=== PATIENT | male | born 1995 | race Two or more races ===

== ENCOUNTER 2020-06-30 09:52 | Outpatient (REF) | payer OTHER, SELFPAY ==
--- NOTE | 2020-06-30 | MR_ITS ---
MRI OF THE BRAIN WITHOUT IV CONTRAST INDICATION: 2 months of headache and vertigo. COMPARISON: Head CT 01/29/2020. TECHNIQUE: Multiplanar multisequence MR imaging of the brain was obtained without IV contrast. FINDINGS: There is no hydrocephalus, extra-axial surface collection, or herniation. Volume averaging artifact versus a nodule within the left internal auditory canal on image 6 of series 8 that can be further assessed with an IAC protocol MRI in light of the patient's history of vertigo. The major flow voids at the skull base are preserved. There is no acute infarct on diffusion-weighted imaging. There is no intracranial hemorrhage on the gradient recalled echo acquisition. The midline structures are normal. The cerebellar tonsils are normally positioned. The cerebellum and brainstem are normal. The craniocervical junction is normal. Osseous marrow signal intensity is homogenous. The visualized soft tissues are unremarkable. Large retention cysts within the maxillary sinuses bilaterally. MR/MR head/brain wo con IMPRESSION: - Volume averaging artifact versus a nodule within the left internal auditory canal on image 6 of series 8 that can be further assessed with an IAC protocol MRI with and without IV contrast in light of the patient's history of vertigo. - Large retention cysts within the maxillary sinuses bilaterally.
== END 2020-06-30 09:53 | disposition home or self-care (01) ==
LOC: HO.MRI 09:52
PROVIDERS: PCP Internal Medicine; Visit Provider Psychiatry & Neurology Neurology
DX: R42 Dizziness and giddiness (principal); R51.9 Headache, unspecified
CPT/HCPCS: 70551

== ENCOUNTER → 2021-01-17 13:59 | Outpatient (BNVA) | payer OTHER, SELFPAY | PROVIDERS: Visit Provider Internal Medicine Gastroenterology | DX: K21.9 Gastro-esophageal reflux disease without esophagitis (principal) | CPT/HCPCS: 99202 ==

== ENCOUNTER 2021-02-08 13:21 | Outpatient (REF) | payer OTHER, SELFPAY ==
[2021-02-08 14:43] LABS: MANUAL DIFF FLAG NO
[2021-02-08 14:50] LABS: Basophils Percent Auto 0.4 % (0-2); Eosinophils Absolute Auto 0.4 X10*3/uL (0.0-0.4); Eosinophils Percent Auto 5.3 % (0-4); Hematocrit 47.3 % (42-52); Hemoglobin 15.9 g/dl (14.0-18.0); Imm Gran Abs Auto 0.02 X10*3/uL (0.00-0.03); Imm Gran Pct Auto 0.3 % (0.0-0.4); Lymphocytes Absolute Auto 2.4 X10*3/uL (1.2-4.9); Lymphocytes Percent Auto 29.7 % (20-40); Mean Corpuscular HGB Conc 33.6 g/dl (31.0-36.0); Mean Corpuscular Volume 83.3 fL (80-98); Mean Platelet Volume 10.2 fL (9.4-12.4); Monocytes Absolute Auto 0.8 X10*3/uL (0.1-1.2); Neutrophils Absolute Auto 4.4 X10*3/uL (2.0-8.3); Neutrophils Percent Auto 54.3 % (45-73); Platelet Count 238 X10*3/uL (160-400); Red Blood Count 5.68 X10*6/uL (4.60-5.80); Red Cell Distribution Width 12.6 % (11.0-16.0)
[2021-02-08 15:51] LABS: Erythrocyte Sedimentation Rate 2 MM/HR (0-15)
== END 2021-02-08 13:22 | disposition home or self-care (01) ==
LOC: HO.LAB 13:21
PROVIDERS: PCP Internal Medicine; Visit Provider Hospitalist
DX: J45.909 Unspecified asthma, uncomplicated (principal); R91.8 Other nonspecific abnormal finding of lung field; K21.9 Gastro-esophageal reflux disease without esophagitis
CPT/HCPCS: 36415; 85025; 85652; 86003; 99202

== ENCOUNTER 2021-03-01 12:50 | Outpatient (REF) | payer OTHER, SELFPAY ==
--- NOTE | ~2021-03-01 | CT_ITS ---
EXAMINATION: CT CHEST WITHOUT CONTRAST CLINICAL INFORMATION: Pulmonary nodule. COMPARISON: None. TECHNIQUE: Multidetector volumetric CT imaging of the chest was done. Axial MIP volume rendering provided. Sagittal and coronal reformatted images were obtained. This CT examination was performed using dose optimization techniques as appropriate, variously including the following: *Automated exposure control *Adjustment of mA and/or kV according to patient size (this includes techniques or standardized protocols for targeted exams where dose is matched to indication/reason for exam; i.e. extremities or head) *Use of iterative reconstruction technique DLP: 146 mGy-cm. FINDINGS: CODING ANALYST: Unremarkable. LUNGS: The lungs are well expanded and clear acute pneumonic process. There is a 2 mm nodule right upper lobe axial image 83/6, 1 mm nodule right upper lobe axial image 145/6, 2 mm nodule left superior major fissure axial image 151/6, 2 mm nodule along the left major fissure axial image 225/6. There is no acute consolidation, mass or groundglass density. MEDIASTINUM: The thyroid lobes are symmetrical and normal. The central trachea and the bronchi are widely patent. Heart size and the great vessels are normal caliber. There is no pericardial effusion. No abnormal-sized mediastinal or hilar lymph nodes seen. PLEURA: There is no pleural effusion. No pleural mass or thickening. AXILLA: There are small shotty lymph nodes seen in the axilla. The chest wall is unremarkable. UPPER ABDOMEN: Visualized liver, spleen, pancreas and bilateral adrenal glands are unremarkable. OSSEOUS STRUCTURES: No lytic or sclerotic process seen. CT/CT chest wo con IMPRESSION: Scattered bilateral tubular pulmonary nodules noted. No mass or acute consolidation. No abnormal mediastinal, hilar or axillary lymphadenopathy.
== END 2021-03-01 12:51 | disposition home or self-care (01) ==
LOC: HO.CT 12:50
PROVIDERS: Visit Provider Hospitalist
DX: R91.8 Other nonspecific abnormal finding of lung field (principal)
CPT/HCPCS: 71250

== ENCOUNTER 2022-01-03 10:32 | Outpatient (REF) | payer OTHER, SELFPAY ==
[2022-01-03 12:10] LABS: COVID-19 Test Positive (Negative)
== END 2022-01-03 10:33 | disposition home or self-care (01) ==
LOC: HO.LAB 10:32
PROVIDERS: Visit Provider Internal Medicine
DX: Z20.822 Contact with and (suspected) exposure to COVID-19 (principal)
CPT/HCPCS: 87635; C9803

== ENCOUNTER 2022-01-04 11:14 | Emergency (ER) | payer OTHER, SELFPAY ==
--- NOTE | 2022-01-04 12:19 | PC.NURSE ---
PT HERE FOR COVID RESULTS FROM YESTERDAY. 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
== END 2022-01-04 12:58 | disposition left against medical advice (07) ==
PROVIDERS: Emergency Provider Emergency Medicine; PCP Internal Medicine
DX: J02.9 Acute pharyngitis, unspecified (principal); R51.9 Headache, unspecified; R11.0 Nausea

== ENCOUNTER 2022-01-04 14:02 | Emergency (ER) | payer OTHER, SELFPAY ==
--- NOTE | ~2022-01-04 | XR_ITS ---
EXAMINATION: XR CHEST CLINICAL INFORMATION: Chest pain COMPARISON: Previous chest x-ray August [address] February 2021 TECHNIQUE: Frontal view of the chest was obtained. FINDINGS: No significant abnormality is noted involving the heart, lungs, mediastinum, bony thorax or soft tissues. XR/XR chest 1V IMPRESSION: Unremarkable examination.
--- NOTE | 2022-01-04 14:13 | ECG_ITS ---
Test Reason : cp Blood Pressure : / mmHG Vent. Rate : 114 BPM Atrial Rate : 114 BPM P-R Int : 114 ms QRS Dur : 076 ms QT Int : 288 ms P-R-T Axes : 066 049 035 degrees QTc Int : 396 ms Sinus tachycardia Otherwise normal ECG When compared with ECG of 19-MAR-2020 04:24, No significant change was found Referred By: Britt Montoya Electronically Signed By:HITESH LEE MD
[2022-01-04 14:33] VITALS: BP 146/71; PULSE 102; RESP 20; TEMP 37.2; O2SAT 96; BMI 22.8
[2022-01-04 14:38] LABS: MANUAL DIFF FLAG NO
[2022-01-04 14:40] LABS: Basophils Percent Auto 0.2 % (0-2); Eosinophils Absolute Auto 0.2 X10*3/uL (0.0-0.4); Eosinophils Percent Auto 2.4 % (0-4); Hematocrit 43.8 % (42.0-52.0); Hemoglobin 14.9 g/dl (14.0-18.0); Imm Gran Abs Auto 0.03 X10*3/uL (0.00-0.03); Imm Gran Pct Auto 0.3 % (0.0-0.4); Lymphocytes Absolute Auto 0.3 X10*3/uL (1.2-4.9); Lymphocytes Percent Auto 3.2 % (20-40); Mean Corpuscular Hemoglobin 28.2 pg (27.0-33.0); Mean Platelet Volume 9.9 fL (9.4-12.4); Monocytes Absolute Auto 1.1 X10*3/uL (0.1-1.2); Monocytes Percent Auto 11.5 % (2-11); Neutrophils Absolute Auto 7.6 x10*3/uL (2.0-8.3); Neutrophils Percent Auto 82.4 % (45-73); Platelet Count 201 X10*3/uL (160-400); Red Blood Count 5.28 X10*6/uL (4.60-5.80); White Blood Count 9.2 X10*3/uL (4.8-10.8)
[2022-01-04 15:02] LABS: Alanine Aminotransferase 27 U/L (0-40); Albumin Level 4.5 g/dL (3.5-5.0); Alkaline Phosphatase 55 U/L (39-117); Anion Gap 12 (12-20); Aspartate Amino Transferase 19 U/L (5-37); Bilirubin Direct 0.2 mg/dL (0.0-0.5); Bilirubin Total 0.5 mg/dL (0.0-1.0); Blood Urea Nitrogen 9 mg/dL (9-16); Calcium 9.1 mg/dL (8.4-10.2); Carbon Dioxide 25 mmol/L (22-29); Chloride 106 mmol/L (96-108); Creatinine Clr Calc Pharmacy 96.2; Estimated Glomerular Filt Rate > 60; Glucose Random 113 mg/dL (60-115); Lipase 32 U/L (8-78); Potassium 4.2 mmol/L (3.3-5.1); Sodium 139 mmol/L (135-145); Total Protein 7.2 g/dL (6.5-8.0)
[2022-01-04 15:06] LABS: Troponin-I High Sensitivity < 3.5 ng/L (<3.5-35.0)
[2022-01-04 16:24] VITALS: BP 123/75; PULSE 102; RESP 20; TEMP 36.7; O2SAT 100
--- NOTE | 2022-01-04 16:37 | ED_ITS ---
HPI - General Adult General Chief complaint: General Medical Stated complaint: chest pain Time Seen by Provider: 01/04/22 14:12 Source: patient Mode of arrival: ambulatory Limitations: no limitations History of Present Illness HPI narrative: 26-year-old male with history of asthma, gastric reflux presents with subjective fevers, body aches and cough for 2 days. Patient checked into the emergency room yesterday and had a COVID screen was positive. He left before being seen. He returns today for some increased cough and shortness of breath. Patient also reports chest discomfort with breathing and coughing. No leg swelling or leg pain. Patient is unvaccinated for COVID Related Data Home Medications Medication Instructions Recorded Confirmed albuterol sulfate mg inhalation Q4H PRN 01/17/21 albuterol sulfate 90 mcg/actuation 2 puff inhalation QID PRN wheezing 01/17/21 aerosol inhaler fluticasone propionate 50 0 mcg intranasal 01/17/21 mcg/actuation nasal spray,suspension loratadine 10 mg tablet 10 mg PO DAILY 01/17/21 lorazepam 0.5 mg tablet 0.5 mg PO DAILY 01/17/21 nystatin 100,000 unit/mL oral 1 ml PO QID 01/17/21 suspension sucralfate 1 gram tablet 1 g PO TID 01/17/21 sumatriptan succinate 100 mg tablet 100 mg PO migraine 01/17/21 Previous Rx's Medication Instructions Recorded pantoprazole 40 mg tablet,delayed 40 mg PO DAILY #30 tabs 01/17/21 release albuterol sulfate 90 mcg/actuation 2 inh inhalation Q4H PRN shortness 01/04/22 breath activated powder inhaler of breath or wheezing #1 ea benzonatate 200 mg capsule 200 mg PO TID PRN cough #20 caps 01/04/22 prednisone 20 mg tablet 40 mg PO DAILY #10 tabs 01/04/22 Allergies Allergy/AdvReac Type Severity Reaction Status Date / Time cephalexin [CEPHALEXIN] Allergy Severe ANGIOEDEMA Unverified 02/08/21 13:44 penicillin G Allergy Severe unknown Verified 02/08/21 13:44 Penicillins [PENICILLINS] Allergy Severe ANGIOEDEMA Unverified 02/08/21 13:44 Iodinated Contrast Media Allergy Mild unknown Verified 02/08/21 13:44 Review of Systems Review of Systems: Yes all other systems are reviewed and are negative Constitutional: Constitutional: Reports no additional constitutional complaints, Reports body ache(s), Denies chills, Reports fever(s), Denies headache(s) and Denies weakness Eyes: Eyes: Reports no additional eye complaints and Denies change in vision ENT: Reports system reviewed and no additional complaints, except as docume nted, Denies dizziness, Denies headache(s), Denies nasal congestion, Denies nasal discharge and Denies neck pain Cardiovascular: Cardiovascular: Reports no additional cardiovascular complaints, Reports chest pain, Denies leg edema and Reports dyspnea Respiratory: Respiratory: Reports no additional respiratory complaints, Reports cough and Reports dyspnea Gastrointestinal: Gastrointestinal: Reports no additional gastrointestinal complaints, Denies abdominal pain, Denies diarrhea, Denies nausea and Denies vomiting Genitourinary: Genitourinary: Denies urinary incontinence Musculoskeletal: Musculoskeletal: Reports no additional musculoskeletal complaints, Denies back pain, Denies arthralgias, Denies joint swelling, Denies neck pain, Denies numbness and Denies tingling Integumentary/Breasts: Skin/Breast: Reports system reviewed and no additional complaints, except as docu and Denies rash Neurologic: Reports system reviewed and no additional complaints, except as documented, Denies dizziness, Denies headache(s), Denies numbness, Denies tingling and Denies weakness [facility] Past Medical History Attestation statement: The following information was validated with the patient. Source: old records reviewed and nursing notes reviewed Medical History Asthma Pulmonary nodules Social History Social History Patient Tobacco Use Status: Never used Tobacco Advance Directives: No Advance Directives Information Provided: No Physical Exam ED Vital Signs: Vital Signs - 24 hr 01/04/22 14:33 01/04/22 16:24 Temperature 98.9 F 98.1 F Pulse Rate 102 H 102 H Respiratory Rate 20 20 Blood Pressure 146/71 H 123/75 Pulse Oximetry 96 100 Oxygen Delivery Method Room Air Room Air BMI result Body Mass Index 22.8 Const General: cooperative, healthy appearing, comfortable and no acute distress Orientation/consciousness: patient oriented x3 Limitations: no limitations HENMT Head: Yes normal to inspection Ears: hearing grossly normal bilaterally and TM's normal bilaterally Throat: Yes posterior oropharynx normal, Yes tonsils normal and Yes uvula midline Eyes General: appearance normal, both eyes and all related structures Pupils: Equal, round and reactive pupils present Neck Neck: Yes normal visual inspection, Yes full ROM, Yes no lymphadenopathy and Yes no meningeal signs Chest Chest palpation & inspection: normal inspection of the chest Resp Effort & Inspection: normal respiratory effort Auscultation: clear to auscultation bilaterally Cardio Rate: regular rate Rhythm: regular rhythm Peripheral pulses: Peripheral pulses 2+ throughout GI Inspection: Yes normal to inspection Palpation (GI): Soft to palpation and nontender General: Yes no CVA tenderness Back/Spine/Pelvis Back: no CVA tenderness Thoracic/Lumbar Spine: thoracic and lumbar spine normal to inspection Skin General skin exam: no rashes or lesions noted Neuro General: patient oriented x3, moves all extremities and no meningeal signs Cranial nerves: Yes Equal, round and reactive pupils present Extrem General: Yes normal to inspection, Yes no pedal edema and Yes no calf tenderness Course Course Course Narrative: Labs are all negative. EKG shows no acute findings with the exception of some mild tachycardia. This resolved with rest. Chest x-ray is negative for infection. Likely chest wall strain secondary to coughing from COVID-19 infection. Patient will be discharged home with cough suppressant, prednisone course and to continue his albuterol MDI. Reviewed worrisome signs and symptoms when to return to the emergency department. Comfortable discharge home. Medical Decision Making MDM Narrative Medical decision making narrative: 26-year-old male who is known COVID positive presents with cough, shortness of breath, chest discomfort with coughing. No leg swelling leg pain. He has had tactile temps. On arrival patient is alert and oriented. His lungs are clear. He is mildly tachycardic. No hypoxia or tachypnea. Clinical findings concerning for DVT. He does report chest dis comfort which is worsened with deep breathing and coughing. Patient had labs, EKG and chest x-ray ordered from triage. Consider pneumonia, PE, chest wall strain Medical Records Medical records reviewed: Yes I reviewed the patient's medical records. Lab Data Lab results reviewed: Yes I reviewed the patient's lab results. Result diagrams: 01/04/22 14:33 01/04/22 14:33 Labs: Lab Results 01/04/22 01/04/22 01/04/22 Range/Units 14:33 14:33 14:33 WBC 9.2 (4.8-10.8) X10*3/uL RBC 5.28 (4.60-5.80) X10*6/uL Hgb 14.9 (14.0-18.0) g/dl Hct 43.8 (42.0-52.0) % MCV 83.0 (80.0-98.0) fL MCH 28.2 (27.0-33.0) pg MCHC 34.0 (31.0-36.0) g/dl RDW 13.0 (11.0-16.0) % Plt Count 201 (160-400) X10*3/uL MPV 9.9 (9.4-12.4) fL Immature Gran % (Auto) 0.3 (0.0-0.4) % Neut % (Auto) 82.4 H (45-73) % Lymph % (Auto) 3.2 L (20-40) % Weston % (Auto) 11.5 H (2-11) % Eos % (Auto) 2.4 (0-4) % Baso % (Auto) 0.2 (0-2) % Lymph # (Auto) 0.3 L (1.2-4.9) X10*3/uL Weston # (Auto) 1.1 (0.1-1.2) X10*3/uL Eos # (Auto) 0.2 (0.0-0.4) X10*3/uL Baso # (Auto) 0.0 (0.0-0.2) X10*3/uL Abs Immat Gran (auto) 0.03 (0.00-0.03) X10*3/uL Absolute Neuts (auto) 7.6 (2.0-8.3) x10*3/uL Absolute Nucleated RBC 0.000 (0.0-0.012) X10*3/uL Nucleated RBC % (auto) 0.0 (0.0-0.2) /100WBC PT (10.0-13.1) SEC INR (0.9-1.1) D-Dimer High Sensitivty NG/ML Sodium 139 (135-145) mmol/L Potassium 4.2 (3.3-5.1) mmol/L Chloride 106 (96-108) mmol/L Carbon Dioxide 25 (22-29) mmol/L Anion Gap 12 (12-20) BUN 9 (9-16) mg/dL Creatinine 1.05 (0.5-1.4) mg/dL Estim Creat Clear Calc 96.2 Estimated GFR > 60 Random Glucose 113 (60-115) mg/dL Calcium 9.1 (8.4-10.2) mg/dL Total Bilirubin 0.5 (0.0-1.0) mg/dL Direct Bilirubin 0.2 (0.0-0.5) mg/dL AST 19 (5-37) U/L ALT 27 (0-40) U/L Alkaline Phosphatase 55 (39-117) U/L Troponin I High Sens < 3.5 (<3.5-35.0) ng/L Total Protein 7.2 (6.5-8.0) g/dL Albumin 4.5 (3.5-5.0) g/dL Lipase 32 (8-78) U/L 01/04/22 Range/Units 16:38 WBC (4.8-10.8) X10*3/uL RBC (4.60-5.80) X10*6/uL Hgb (14.0-18.0) g/dl Hct (42.0-52.0) % MCV (80.0-98.0) fL MCH (27.0-33.0) pg MCHC (31.0-36.0) g/dl RDW (11.0-16.0) % Plt Count (160-400) X10*3/uL MPV (9.4-12.4) fL Immature Gran % (Auto) (0.0-0.4) % Neut % (Auto) (45-73) % Lymph % (Auto) (20-40) % Weston % (Auto) (2-11) % Eos % (Auto) (0-4) % Baso % (Auto) (0-2) % Lymph # (Auto) (1.2-4.9) X10*3/uL Weston # (Auto) (0.1-1.2) X10*3/uL Eos # (Auto) (0.0-0.4) X10*3/uL Baso # (Auto) (0.0-0.2) X10*3/uL Abs Immat Gran (auto) (0.00-0.03) X10*3/uL Absolute Neuts (auto) (2.0-8.3) x10*3/uL Absolute Nucleated RBC (0.0-0.012) X10*3/uL Nucleated RBC % (auto) (0.0-0.2) /100WBC PT 11.5 (10.0-13.1) SEC INR 1.0 (0.9-1.1) D-Dimer High Sensitivty 172 NG/ML Sodium (135-145) mmol/L Potassium (3.3-5.1) mmol/L Chloride (96-108) mmol/L Carbon Dioxide (22-29) mmol/L Anion Gap (12-20) BUN (9-16) mg/dL Creatinine (0.5-1.4) mg/dL Estim Creat Clear Calc Estimated GFR Random Glucose (60-115) mg/dL Calcium (8.4-10.2) mg/dL Total Bilirubin (0.0-1.0) mg/dL Direct Bilirubin (0.0-0.5) mg/dL AST (5-37) U/L ALT (0-40) U/L Alkaline Phosphatase (39-117) U/L Troponin I High Sens (<3.5-35.0) ng/L Total Protein (6.5-8.0) g/dL Albumin (3.5-5.0) g/dL Lipase (8-78) U/L Imaging Data Chest x-ray: Attestation: I personally reviewed and interpreted this imaging study as follows: Radiologist's impression: [address] [address] XRay Report Signed Patient: Fam Goldberg MR#: [id number] : 1995 Acct:[id number] Age/Sex: 26 / M ADM Date: 01/04/22 Loc: .ED Attending Dr: Ordering Physician: Britt Montoya MD Date of Service: 01/04/22 Procedure(s): XR chest 1V Accession Number(s): [id number] cc: Britt Montoya MD~ EXAMINATION: XR CHEST CLINICAL INFORMATION: Chest pain COMPARISON: Previous chest x-ray August [address] February 2021 TECHNIQUE: Frontal view of the chest was obtained. FINDINGS: No significant abnormality is noted involving the heart, lungs, mediastinum, bony thorax or soft tissues. XR/XR chest 1V IMPRESSION: Unremarkable examination. ? ECG Data Attestation: I personally reviewed and interpreted this ECG as follows: Interpretation: Sinus tachycardia with a rate of 114, normal NE, normal QRS, normal QT Discharge Plan Discharge Clinical Impression: COVID, Strain of chest wall Patient Disposition: Home, Self-Care Instructions: Chest Wall Pain (ED), COVID-19 (Coronavirus Disease 2019) (ED) Additional Instructions: Labs, EKG, CXR are all re-assurring. Continue 5 day quarentine Prescriptions: New albuterol sulfate 90 mcg/actuation aerosol powdr breath activated 2 inh inhalation Q4H PRN (Reason: shortness of breath or wheezing) Qty: 1 0RF benzonatate 200 mg capsule 200 mg PO TID PRN (Reason: cough) Qty: 20 0RF prednisone 20 mg tablet 40 mg PO DAILY Qty: 10 0RF No Action sucralfate 1 gram tablet 1 g PO TID albuterol sulfate 90 mcg/actuation HFA aerosol inhaler 2 puff inhalation QID PRN (Reason: wheezing) albuterol sulfate 2.5 mg /3 mL (0.083 %) solution for nebulization inhalation Q4H PRN loratadine 10 mg tablet 10 mg PO DAILY fluticasone propionate 50 mcg/actuation spray,suspension 0 mcg intranasal lorazepam 0.5 mg tablet 0.5 mg PO DAILY sumatriptan succinate 100 mg tablet 100 mg PO nystatin 100,000 unit/mL suspension 1 ml PO QID pantoprazole 40 mg tablet,delayed release (DR/EC) 40 mg PO DAILY Qty: 30 3RF Referrals: Lucien Rai III, MD [Primary Care Provider] - 1 week Stand Alone Forms: Work/School Release Interventions: ED Discharge Assessment Last Done: 01/04/22 17:34 Discharge Date/Time: 01/04/22 17:35 Print Language: Armenian
[2022-01-04 16:51] LABS: Prothrombin Time 11.5 SEC (10.0-13.1)
[2022-01-04 16:52] LABS: D Dimer High Sensitivity 172 NG/ML
== END 2022-01-04 17:35 | disposition home or self-care (01) ==
PROVIDERS: Nurse Practitioner Family; Emergency Provider Emergency Medicine; PCP Internal Medicine
DX: U07.1 COVID-19 (principal); S29.011A Strain of muscle and tendon of front wall of thorax, initial encounter; X50.9XXA Other and unspecified overexertion or strenuous movements or postures, initial encounter; Y93.89 Activity, other specified; Y92.039 Unspecified place in apartment as the place of occurrence of the external cause; Y99.9 Unspecified external cause status
CPT/HCPCS: 36415; 71045; 80048; 80076; 83690; 84484; 85025; 85379; 85610; 93005; 99283; 99284

== ENCOUNTER 2022-01-05 09:02 | Emergency (ER) | payer OTHER, SELFPAY ==
[2022-01-05 09:07] VITALS: BP 120/81; PULSE 98; PULSE 99; RESP 18; TEMP 36.7; O2SAT 100; BMI 22.6
--- NOTE | 2022-01-05 09:32 | ECG_ITS ---
Test Reason : cp/sob Blood Pressure : / mmHG Vent. Rate : 100 BPM Atrial Rate : 100 BPM P-R Int : 120 ms QRS Dur : 076 ms QT Int : 312 ms P-R-T Axes : 068 048 048 degrees QTc Int : 402 ms Normal sinus rhythm Normal ECG When compared with ECG of 04-JAN-2022 14:17, No significant change was found Referred By: Betsy Patino Electronically Signed By:HITESH LEE MD
--- NOTE | 2022-01-05 09:33 | ED_ITS ---
HPI - General Adult General Chief complaint: General Medical Stated complaint: +COVID, FEELS HR CHANGING PER EMS Time Seen by Provider: 01/05/22 09:09 Source: patient and EMS Mode of arrival: EMS History of Present Illness HPI narrative: 26-year-old male with a past medical history of asthma, GERD, COVID-19 positive on 01/03/2022 presenting to the ED complaining of fever, dry cough, chest discomfort, mild SOB, and feeling like his heart is racing since yesterday. Patient admits he was seen and treated in the ED yesterday for similar symptoms, reports today feels like heart rate fluctuation is worse, otherwise symptoms consistent/unchanged. Admits taking 2 Tylenol this morning, and staying hydrated. Denies chills, abdominal pain, nausea/vomiting, recent travel, history of blood clots, pedal edema, calf pain, cigarette smoking. Onset (ago): day(s) Related Data Home Medications Medication Instructions Recorded Confirmed albuterol sulfate mg inhalation Q4H PRN 01/17/21 albuterol sulfate 90 mcg/actuation 2 puff inhalation QID PRN wheezing 01/17/21 aerosol inhaler fluticasone propionate 50 0 mcg intranasal 01/17/21 mcg/actuation nasal spray,suspension loratadine 10 mg tablet 10 mg PO DAILY 01/17/21 lorazepam 0.5 mg tablet 0.5 mg PO DAILY 01/17/21 nystatin 100,000 unit/mL oral 1 ml PO QID 01/17/21 suspension sucralfate 1 gram tablet 1 g PO TID 01/17/21 sumatriptan succinate 100 mg tablet 100 mg PO migraine 01/17/21 Previous Rx's Medication Instructions Recorded pantoprazole 40 mg tablet,delayed 40 mg PO DAILY #30 tabs 01/17/21 release albuterol sulfate 90 mcg/actuation 2 inh inhalation Q4H PRN shortness 01/04/22 breath activated powder inhaler of breath or wheezing #1 ea benzonatate 200 mg capsule 200 mg PO TID PRN cough #20 caps 01/04/22 prednisone 20 mg tablet 40 mg PO DAILY #10 tabs 01/04/22 Allergies Allergy/AdvReac Type Severity Reaction Status Date / Time cephalexin [CEPHALEXIN] Allergy Severe ANGIOEDEMA Verified 01/05/22 09:12 penicillin G Allergy Severe unknown Verified 01/05/22 09:12 Penicillins [PENICILLINS] Allergy Severe ANGIOEDEMA Verified 01/05/22 09:12 Iodinated Contrast Media Allergy Mild unknown Verified 01/05/22 09:12 Review of Systems Review of Systems: Constitutional: + Fever, No Chills, + Fatigue, No Malaise ENT/Mouth: No Ear Pain, No Nasal Congestion, No Sinus Pain, No Hoarseness, No sore throat, No Rhinorrhea, No Swallowing Difficulty Eyes: No Eye Pain, No Swelling, No Redness, No Vision Changes Cardiovascular: + Chest discomfort when coughing, + SOB, No Dyspnea on Exertion, No Orthopnea, No Edema, + Palpitations Respiratory: + Cough, No Sputum, No Wheezing, No Dyspnea Gastrointestinal: No Nausea, No Vomiting, No Diarrhea, No Constipation, No Abdominal pain, No Hematochezia, No Melena Genitourinary: No Dysuria, No Urinary Frequency, No Hematuria Musculoskeletal: No joint pain, No Myalgias, No Joint Swelling Skin: No Skin Lesions, No rash Neuro: No Weakness, No Dizziness, + Headache Yes all other systems are reviewed and are negative [facility] Past Medical History Attestation statement: The following information was validated with the patient. Medical History Asthma Pulmonary nodules Social History Social History Patient Tobacco Use Status: Never used Tobacco Advance Directives: No Advance Directives Information Provided: No Physical Exam ED Vital Signs: Vital Signs - 24 hr 01/05/22 09:07 01/05/22 11:04 Temperature 98.0 F 99.4 F Pulse Rate 98 100 Respiratory Rate 18 18 Blood Pressure 120/81 131/68 Pulse Oximetry 100 100 Oxygen Delivery Method Room Air Room Air BMI result Body Mass Index 22.6 Const General: cooperative, healthy appearing, no acute distress, alert, awake and anxious Orientation/consciousness: patient oriented x3 Limitations: no limitations HENMT Head: Yes normal to inspection and Yes atraumatic Ears: hearing grossly normal bilaterally General nose exam: Normal external nose present Face and sinus: Yes normal facial exam Mouth: Normal oral and palatal mucosa present Throat: Yes posterior oropharynx normal, Yes tonsils normal and Yes uvula midline Eyes General: appearance normal, both eyes and all related structures EOM: EOMs intact bilaterally Neck Neck: Yes normal visual inspection and Yes no meningeal signs Resp Effort & Inspection: normal respiratory effort and no respiratory distress Auscultation: clear to auscultation bilaterally, no crackles, no rales, no rhonchi and no wheezes Cardio Rate: regular rate Heart sounds: S1 normal heart sound present and S2 normal heart sound present GI Inspection: Yes normal to inspection Palpation (GI): Soft to palpation, nontender and no guarding Skin Rashes: no rashes Wounds: no wounds Neuro General: patient oriented x3, tone normal and no meningeal signs Gait exam (Neuro): Normal gait present Extrem General: Yes normal to inspection, Yes no pedal edema and Yes no calf tenderness Course Course Course Narrative: Patient with low-grade temp 99.4 degrees heart rate of 100 suspected from fever. Still low suspicion for PE/DVT >1132--patient tolerating p.o. resting in the emergency department, heart rate 96. 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 Patient verbalized understanding and feel safe for discharge home at this time Medical Decision Making MDM Narrative Medical decision making narrative: 26-year-old male with a past medical history of asthma, GERD, COVID-19 positive on 01/03/2022 presenting to the ED complaining of fever, dry cough, chest discomfort, mild SOB, and feeling like his heart is racing since yesterday. On exam vital signs stable, mildly tachycardic at 98, appears anxious, lungs CTA, no pedal edema/calf tenderness. Reviewed patient's labs from yesterday which were unremarkable including negative troponin and D-dimer. CXR are negative. Patient is prescribed Ativan at home, suspect symptoms are related to anxiety. Low suspicion for PE or DVT with negative D-dimer yesterday. Unlikely pneumonia. Suspect symptoms related to COVID-19 Plan: EKG, Ativan, Motrin, reassess Medical Records Medical records reviewed: Yes I reviewed the patient's medical records. Lab Data Lab results reviewed: Yes I reviewed the patient's lab results. Discharge Plan Discharge Clinical Impression: COVID-19 Patient Disposition: Home, Self-Care Prescriptions: No Action albuterol sulfate 90 mcg/actuation aerosol powdr breath activated 2 inh inhalation Q4H PRN (Reason: shortness of breath or wheezing) Qty: 1 0RF benzonatate 200 mg capsule 200 mg PO TID PRN (Reason: cough) Qty: 20 0RF prednisone 20 mg tablet 40 mg PO DAILY Qty: 10 0RF sucralfate 1 gram tablet 1 g PO TID albuterol sulfate 90 mcg/actuation HFA aerosol inhaler 2 puff inhalation QID PRN (Reason: wheezing) albuterol sulfate 2.5 mg /3 mL (0.083 %) solution for nebulization inhalation Q4H PRN loratadine 10 mg tablet 10 mg PO DAILY fluticasone propionate 50 mcg/actuation spray,suspension 0 mcg intranasal lorazepam 0.5 mg tablet 0.5 mg PO DAILY sumatriptan succinate 100 mg tablet 100 mg PO nystatin 100,000 unit/mL suspension 1 ml PO QID pantoprazole 40 mg tablet,delayed release (DR/EC) 40 mg PO DAILY Qty: 30 3RF
[2022-01-05] MEDS: LORazepam 0.5 MG TABLET PO (10:02)
[2022-01-05] MEDS: Ibuprofen 400 MG TABLET PO (10:02)
[2022-01-05 11:04] VITALS: BP 131/68; PULSE 100; RESP 18; TEMP 37.4; O2SAT 100
[2022-01-05] MEDS: Acetaminophen 325 MG TABLET 650 MG PO (11:30)
[2022-01-05 11:31] VITALS: PULSE 96; RESP 18; O2SAT 98
== END 2022-01-05 11:47 | disposition home or self-care (01) ==
PROVIDERS: Emergency Provider Emergency Medicine; PCP Internal Medicine
DX: U07.1 COVID-19 (principal); R07.89 Other chest pain; R06.02 Shortness of breath; Z79.899 Other long term (current) drug therapy
CPT/HCPCS: 93005; 99283; 99284

== ENCOUNTER 2022-09-29 06:37 | Emergency (ER) | payer OTHER, SELFPAY ==
[2022-09-29 06:42] VITALS: BP 114/69; BP 130/78; PULSE 96; PULSE 97; RESP 16; TEMP 37.1; O2SAT 98; O2SAT 99; BMI 25.0
--- NOTE | 2022-09-29 07:09 | ED_ITS ---
HPI - General Adult General Chief complaint: General Medical Stated complaint: Anxiety Attack Time Seen by Provider: 09/29/22 07:06 Source: patient Mode of arrival: ambulatory Limitations: no limitations History of Present Illness HPI narrative: Patient does have a history of anxiety/panic attack taking care of his dad who has Alzheimer's disease with his sister was feeling very anxious after taking care of him took Ativan 1 mg prior to arrival feeling much better now also complaining of low back pain which is going on for a while no direct trauma or injury patient denies any depression or suicidal ideation Related Data Home Medications Medication Instructions Recorded Confirmed albuterol sulfate 2.5 mg/3 mL mg inhalation Q4H PRN 01/17/21 (0.083 %) solution for nebulization albuterol sulfate 90 mcg/actuation 2 puff inhalation QID PRN wheezing 01/17/21 aerosol inhaler fluticasone propionate 50 0 mcg intranasal 01/17/21 mcg/actuation nasal spray,suspension loratadine 10 mg tablet 10 mg PO DAILY 01/17/21 lorazepam 0.5 mg tablet 0.5 mg PO DAILY 01/17/21 nystatin 100,000 unit/mL oral 1 ml PO QID 01/17/21 suspension sucralfate 1 gram tablet 1 g PO TID 01/17/21 sumatriptan succinate 100 mg tablet 100 mg PO migraine 01/17/21 Previous Rx's Medication Instructions Recorded pantoprazole 40 mg tablet,delayed 40 mg PO DAILY #30 tabs 01/17/21 release albuterol sulfate 90 mcg/actuation 2 inh inhalation Q4H PRN shortness 01/04/22 breath activated powder inhaler of breath or wheezing #1 ea benzonatate 200 mg capsule 200 mg PO TID PRN cough #20 caps 01/04/22 prednisone 20 mg tablet 40 mg PO DAILY #10 tabs 01/04/22 cyclobenzaprine 10 mg tablet 10 mg PO Q8H #20 tabs 09/29/22 ibuprofen 600 mg tablet 600 mg PO Q6H PRN fever or pain 09/29/22 #30 tabs lorazepam 1 mg tablet (Ativan) 1 mg PO BEDTIME PRN anxiety #20 09/29/22 tabs Allergies Allergy/AdvReac Type Severity Reaction Status Date / Time cephalexin [CEPHALEXIN] Allergy Severe ANGIOEDEMA Verified 01/05/22 09:12 penicillin G Allergy Severe unknown Verified 01/05/22 09:12 Penicillins [PENICILLINS] Allergy Severe ANGIOEDEMA Verified 01/05/22 09:12 Iodinated Contrast Media Allergy Mild unknown Verified 01/05/22 09:12 Review of Systems Review of Systems: Yes all other systems are reviewed and are negative [facility] Past Medical History Medical History Asthma Pulmonary nodules Social History Social History Patient Tobacco Use Status: Never used Tobacco Advance Directives: No Advance Directives Information Provided: Yes Physical Exam ED Vital Signs: Vital Signs - 24 hr 09/29/22 06:42 Temperature 98.7 F Pulse Rate 96 Respiratory Rate 16 Blood Pressure 114/69 Pulse Oximetry 98 Oxygen Delivery Method Room Air BMI result Body Mass Index 25.0 Appearance: Alert. Oriented X3. No acute distress. Mood stable ENT: Pharynx normal. Oral Mucosa moist Neck: Normal inspection. Neck supple. CVS: Normal heart rate and rhythm. Pulses normal. Respiratory: No respiratory distress. Equal air entry bilateral, Abdomen: Soft and nontender. Bowel sounds are present, no mass palpable, no CVA tenderness Skin: Skin warm and dry. Normal skin color. Normal skin turgor. Extremities: No lower extremity edema. No calf tenderness back: Diffuse paraspinal lumbar spine tenderness no deformity SLR negative bila teral Neuro: Oriented X 3. No motor deficit. No sensory deficit.No cerebellar signs , cranial nerves II-XII intact Medical Decision Making Medical Decision Making MDM Narrative: Patient with anxiety discharge patient home on Ativan for low back pain will give him Motrin and Flexeril Discharge Plan Discharge Clinical Impression: Anxiety, Low back pain Patient Disposition: Home, Self-Care Instructions: Back Pain (ED), Anxiety (ED) Additional Instructions: Medication for anxiety as needed Pain medication and muscle relaxer for low back pain Ice pack Follow with PCP Prescriptions: New lorazepam [Ativan] 1 mg tablet 1 mg PO BEDTIME PRN (Reason: anxiety) Qty: 20 0RF cyclobenzaprine 10 mg tablet 10 mg PO Q8H Qty: 20 0RF ibuprofen 600 mg tablet 600 mg PO Q6H PRN (Reason: fever or pain) Qty: 30 0RF No Action albuterol sulfate 90 mcg/actuation aerosol powdr breath activated 2 inh inhalation Q4H PRN (Reason: shortness of breath or wheezing) Qty: 1 0RF benzonatate 200 mg capsule 200 mg PO TID PRN (Reason: cough) Qty: 20 0RF prednisone 20 mg tablet 40 mg PO DAILY Qty: 10 0RF sucralfate 1 gram tablet 1 g PO TID albuterol sulfate 90 mcg/actuation HFA aerosol inhaler 2 puff inhalation QID PRN (Reason: wheezing) albuterol sulfate 2.5 mg /3 mL (0.083 %) solution for nebulization inhalation Q4H PRN loratadine 10 mg tablet 10 mg PO DAILY fluticasone propionate 50 mcg/actuation spray,suspension 0 mcg intranasal lorazepam 0.5 mg tablet 0.5 mg PO DAILY sumatriptan succinate 100 mg tablet 100 mg PO nystatin 100,000 unit/mL suspension 1 ml PO QID pantoprazole 40 mg tablet,delayed release (DR/EC) 40 mg PO DAILY Qty: 30 3RF Stand Alone Forms: Work/School Release Interventions: ED Discharge Assessment Last Done: 09/29/22 07:37 Discharge Date/Time: 09/29/22 07:37
== END 2022-09-29 07:37 | disposition home or self-care (01) ==
PROVIDERS: Emergency Provider Internal Medicine; PCP Internal Medicine
DX: F41.1 Generalized anxiety disorder (principal); F43.0 Acute stress reaction; M54.50 Low back pain, unspecified; Z79.899 Other long term (current) drug therapy
CPT/HCPCS: 99282; 99283

== ENCOUNTER 2022-11-16 12:17 | Day surgery (SDC) | payer OTHER, SELFPAY ==
--- NOTE | 2022-11-15 14:11 | P.CONAN_ITS ---
Documented by User: Lindsay Clemente NP 11/15/22 14:11 HPI - Anesthesia Eval Consult details Narrative: 27yo M for Upper Endoscopy PMF Active Problems Active Problems: All Active Problems (Updated 09/30/22 @ 00:02 by Charles Matias) COVID (Acute) COVID-19 (Acute) Dysuria (Acute) Pulmonary nodules (Acute) Asthma (Acute) GERD (gastroesophageal reflux disease) (Acute) Past Medical History Medical History Asthma Pulmonary nodules Social History Social History Patient Tobacco Use Status: Never used Tobacco Meds Allergies Allergy/AdvReac Type Severity Reaction Status Date / Time cephalexin [CEPHALEXIN] Allergy Severe Angioedema Verified 11/16/22 12:46 penicillin G Allergy Severe Angioedema Verified 11/16/22 12:46 Penicillins [PENICILLINS] Allergy Severe Angioedema Verified 11/16/22 12:46 Iodinated Contrast Media Allergy Mild Rash Verified 11/16/22 12:46 Home Medications Medication Instructions Recorded Confirmed Last Taken Type albuterol sulfate 2.5 mg/3 mL 2.5 mg inhalation Q4H PRN breathing 01/17/21 11/16/22 Unknown History (0.083 %) solution for nebulization albuterol sulfate 90 mcg/actuation 2 puff inhalation QID PRN wheezing 01/17/21 0 11/16/22 Unknown History aerosol inhaler loratadine 10 mg tablet 10 mg PO DAILY 01/17/21 11/16/22 Unknown History lorazepam 0.5 mg tablet 0.5 mg PO DAILY 01/17/21 11/16/22 Unknown History sumatriptan succinate 100 mg tablet 100 mg PO DAILY migraine 01/17/21 11/16/22 Unknown History Exam Exam Date and Time: November 15, 2022 141 Assessment and Plan Assessment Anesthesia Assessment: Chart Reviewed Documented by User: Kang Redd MD 11/16/22 18:21 HPI - Anesthesia Eval Consult details Narrative: 27yo M for Upper Endoscopy Severe Anxiety PMFSH Past Medical History Medical History Asthma Pulmonary nodules Functional capacity: independent ambulation Family History Family history of problems with anesthesia: No Surgical History History of Problems with Anesthesia: No Social History Social History Patient Tobacco Use Status: Never used Tobacco Meds Allergies Allergy/AdvReac Type Severity Reaction Status Date / Time cephalexin [CEPHALEXIN] Allergy Severe Angioedema Verified 11/16/22 12:46 penicillin G Allergy Severe Angioedema Verified 11/16/22 12:46 Penicillins [PENICILLINS] Allergy Severe Angioedema Verified 11/16/22 12:46 Iodinated Contrast Media Allergy Mild Rash Verified 11/16/22 12:46 Home Medications Medication Instructions Recorded Confirmed Last Taken Type albuterol sulfate 2.5 mg/3 mL 2.5 mg inhalation Q4H PRN breathing 01/17/21 11/16/22 Unknown History (0.083 %) solution for nebulization albuterol sulfate 90 mcg/actuation 2 puff inhalation QID PRN wheezing 01/17/21 11/16/22 Unknown History aerosol inhaler loratadine 10 mg tablet 10 mg PO DAILY 01/17/21 11/16/22 Unknown History lorazepam 0.5 mg tablet 0.5 mg PO DAILY 01/17/21 11/16/22 Unknown History sumatriptan succinate 100 mg tablet 100 mg PO DAILY migraine 01/17/21 11/16/22 Unknown History Exam Airway Mallampati Class: IV TM Dist: >3cm Neck ROM: Full Loose/Missing/Broken Teeth: Yes Assessment and Plan Assessment Anesthesia Assessment: Anesthesia Plan Discussed Final Anesthetic Review Family History of Problems with Anesthesia: No History of Problems with Anesthesia: No NPO: Yes ASA Class: II Final Preanesthetic Review: Meds/Allgs Chart Reviewed, Consent Obtained/Reviewed and Anes Risks/Benef Reviewed Patient Risk: Intermediate Procedure Risk: Intermediate Anesthetic Plan Anesthetic Plan: MAC: Disposition: Standard PACU
[2022-11-16 12:46] VITALS: BMI 25.0
[2022-11-16 12:48] VITALS: BP 117/80; PULSE 81; RESP 16; TEMP 37.1; O2SAT 98
[2022-11-16] MEDS: Lactated Ringers 1,000 ML 100 ML IVCONT (12:57)
[2022-11-16 13:43] LABS: Glucose, Whole Blood 92 mg/dL (60-115)
--- NOTE | 2022-11-16 13:59 | MHC.SHP ---
Pre-Procedural Eval Section A Date of Service: 11/16/22 Section B Chief Complaint: reflux disease Details of Present Illness: dysphagia Relevant Family History (Specify if Yes): No Relevant Social History: None Present Medications: see Short Stay Collaborative assessment Medical History: Significant History (Asthma Pulmonary nodules) History of Previous Operations: No relevant previous surgery Allergies: Allergies Allergy/AdvReac Type Severity Reaction Status Date / Time cephalexin [CEPHALEXIN] Allergy Severe Angioedema Verified 11/16/22 12:46 penicillin G Allergy Severe Angioedema Verified 11/16/22 12:46 Penicillins [PENICILLINS] Allergy Severe Angioedema Verified 11/16/22 12:46 Iodinated Contrast Media Allergy Mild Rash Verified 11/16/22 12:46 Review of Systems Sugical H&P ROS: Negative: Constitution, Cardiovascular, Respiratory, Neurological, Psychiatric, Hem-Onc, Allergic/Immunologic, Gastrointestinal, Genitourinary, Musculoskeletal, Integumentary, Endocrine and Eyes/Ears/Nose/Throat Exam Surgical H&P Exam: Normal: HEENT, Normal: Heart, Normal: Lungs, Normal: Extremities, Normal: Abdomen, Normal: Skin and Normal: Neurological Plan Diagnosis/Plan: Unchanged I have reviewed the history and physical and performed a pertinent physical examination on my patient. No changes have occurred unless specified. EGD for dysphagia assessment Time Spent With Patient Time: Total time managing care of this patient today ____ minutes.
--- NOTE | 2022-11-16 14:00 | P.OP_ITS ---
Operative Note Operative Note Date of Service: 11/16/22 Narrative: Procedure Description: EGD Indication: dysphagia Anesthesia: MAC FLEXIBLE TRANSORAL UPPER GASTROINTESTINAL ENDOSCOPY UPPER ENDOSCOPY Consent: Indications for the procedure and potential complications of bleeding, perforation, reaction to medications and missed diagnosis were discussed with the patient and informed consent was obtained. Instrument: Olympus GIF H 190 J mid size upper endoscope Monitoring: Vital signs and clinical assessment, continuous EKG monitoring, Pulse oximetry, Carbon Dioxide monitoring and blood pressure monitoring were done throughout the procedure. Procedure: The patient was placed in the left lateral decubitis position and pre-procedure medications were administered and a bite block was placed. The endoscope was inserted into the mouth and advanced under direct vision to the third part of duodenum. A careful inspection was made as the upper endoscope was withdrawn including a retroflexed examination of the proximal stomach; Findings and interventions are described below. Findings: Larynx:normal Esophagus: GE junction at 34 cm, diaphragm hiatus at 37 cm, consistent with 3 cm sliding hiatal hernia. bogginess and congestion with erythema at GEJ with some small linear erosions, bx taken, balloon dilation to 19 mm at UEs and LES- no tears seen Stomach: Patchy gastric erythema. Biopsies were obtained. Grade 2 flap valve on retroflexed examination of the cardia. Duodenum: Normal bulb and descending duodenum, bx taken Intervention: Biopsies as noted above, balloon dilation Impression/Findings: erosive esophagitis gastritis PLAN: High dose PPI for 3 months then can titrate down if ongoing sx then manometry
--- NOTE | 2022-11-16 14:00 | PC.NURSE ---
Addendum entered by Patt Durbin 11/16/22 14:27: New order for 50ml of D5W IV wide open now. Original Note: Patient complaining of hypoglycemia, states I have'nt eaten in 13 hours and I am feeling a little jittery, sometimes my sugar drops . No diagnosis of hypoglycemia in record. Blood sugar checked, 92. Dr. Redd made aware. No new orders at this time.
[2022-11-16] MEDS: Dextrose 5 % 50 ML 200 ML IV (14:15)
[2022-11-16 15:05] VITALS: BP 97/51; PULSE 118; RESP 16; TEMP 37.4; O2SAT 97
[2022-11-16 15:12] LABS: Glucose, Whole Blood 101 mg/dL (60-115)
[2022-11-16 15:20] VITALS: BP 96/53; PULSE 91; RESP 16; O2SAT 96
[2022-11-16 15:35] VITALS: BP 99/60; PULSE 94; RESP 16; TEMP 36.2; O2SAT 98
== END 2022-11-16 16:07 | disposition home or self-care (01) ==
PROVIDERS: PCP Internal Medicine; Visit Provider Internal Medicine Gastroenterology
PROC: 0DJ08ZZ Inspection of Upper Intestinal Tract, Via Natural or Artificial Opening Endoscopic (ICD-10-PCS; CPT 43235; principal; 2022-11-16 14:10)
DX: K21.9 Gastro-esophageal reflux disease without esophagitis (principal); R13.10 Dysphagia, unspecified; K29.50 Unspecified chronic gastritis without bleeding; K20.80 Other esophagitis without bleeding; K44.9 Diaphragmatic hernia without obstruction or gangrene; J45.909 Unspecified asthma, uncomplicated; R91.8 Other nonspecific abnormal finding of lung field; R30.0 Dysuria; Z79.899 Other long term (current) drug therapy; Z88.0 Allergy status to penicillin; Z88.1 Allergy status to other antibiotic agents; Z91.041 Radiographic dye allergy status
CPT/HCPCS: 43249; 43239; 82947; 88305; 88342; C1726; J2250; J2765

== ENCOUNTER → 2022-12-22 08:42 | Outpatient (BNVA) | payer OTHER, SELFPAY | PROVIDERS: PCP Internal Medicine; Visit Provider Internal Medicine Gastroenterology | DX: K21.9 Gastro-esophageal reflux disease without esophagitis (principal) | CPT/HCPCS: 99212 ==

== ENCOUNTER 2023-04-30 08:40 | Outpatient (AMB) | payer OTHER, SELFPAY ==
--- NOTE | 2023-04-30 08:40 | A.OFFVIS_ITS ---
Intake Intake Visit Reasons: follow up per pt request Intake Note: Fam presents as a video call. CC: Sister states that omeprazole is working fine but he is still having food come back up after he eats. Allergies cephalexin [CEPHALEXIN] Allergy (Severe, Verified 04/30/23 08:42) Angioedema penicillin G Allergy (Severe, Verified 04/30/23 08:42) Angioedema Penicillins [PENICILLINS] Allergy (Severe, Verified 04/30/23 08:42) Angioedema Iodinated Contrast Media Allergy (Mild, Verified 04/30/23 08:42) Rash HPI follow up per pt request HPI Details 28 yr old m being called for f/u RECAP: Has 3 yr of bad acid reflux has regurgitation has choking sensation swallowing is ok feels omeprazole does not work for him, taking for 1 yr--taking 20 mg daily (he felt 40 mg made him constipated) he has burping he was intolerant of pantoprazole and he felt it made him worse he was sent nexium but never received PCP gave him omerpazole 20 mg and he gelt good with this EGD:10/2022 erosive esophagitis gastritis hiatal hernia, 3 cm Was recommended on high dose PPI for 3 months INTERIM: Omeprazole 20 mg BID has helped a lot with the burning sensation but he still does have regurgitation of small pieces of food, happens every day, he also starts coughing after eating as well he has gas as well no rectal bleeding no nausea or vomiting denies abdominal pain has noted constipation-- not taking any laxative --describes it as severe, not his normal small amounts of stool, going on for few months anxiety is still present due to his dad having alzheimers, lots of stress, affecting his BP etc EXAM: GENERAL: The patient is well developed and nontoxic appearing A/P: 1/ GERD, with regurgitation 2/ Constipation, and altered bowel habit - stools, unclear cause --maybe worsening 1/ PLAN: 1/ check labs incl nutrients and TSH 2/ Add pepcid to PPI for bedtime 3/ treat constipation with miralax might help his regurg, also needs colonoscopy due to altered bowel habits --[facility] Medical History Pulmonary nodules Asthma Surgical History History of esophagogastroduodenoscopy (EGD) Family History Paternal Grandfather Colon cancer Social History Patient Tobacco Use Status: Never used Tobacco Assessment & Plan Assessment & Plan (1) GERD (gastroesophageal reflux disease): Code(s): K21.9 - Gastro-esophageal reflux disease without esophagitis (2) Malnutrition: Code(s): E46 - Unspecified protein-calorie malnutrition (3) Altered bowel habits: Code(s): R19.4 - Change in bowel habit Orders: Orders TSH reflex Free T4 Today E46 - Unspecified protein-calorie malnutrition, K21.9 - Gastro-esophageal reflux disease without esophagitis, R19.4 - Change in bowel habit Complete Blood Count Auto Diff Today E46 - Unspecified protein-calorie malnutrition, K21.9 - Gastro-esophageal reflux disease without esophagitis, R19.4 - Change in bowel habit Vitamin B12 and Folate Today E46 - Unspecified protein-calorie malnutrition, K21.9 - Gastro-esophageal reflux disease without esophagitis, R19.4 - Change in bowel habit Comprehensive Met. Panel Today E46 - Unspecified protein-calorie malnutrition, K21.9 - Gastro-esophageal reflux disease without esophagitis, K75.81 - Nonalcoholic steatohepatitis (PALOMARES), R19.4 - Change in bowel habit Magnesium Today E46 - Unspecified protein-calorie malnutrition, K21.9 - Gastro- esophageal reflux disease without esophagitis, R19.4 - Change in bowel habit Medications: New famotidine 40 mg PO BEDTIME 90 tabs 3RF sodium,potassium,mag sulfates 17.5-3.13-1.6 gram (Suprep Bowel Prep Kit) DILUTE; drink 1/2 at 6-8 pm and half at 11 PM- 1AM 354 mL 0RF polyethylene glycol 3350 (Miralax) 17 grams PO DAILY 510 grams 0RF Telehealth Telehealth Location of provider rendering services: practice address Location of patient: address on file Patient Identification confirmed using: Name, : Yes Telehealth method: video Patient verbally consented to treatment: Yes Patient verbally consented to billing insurance company: Yes Patient informed of any privacy concerns related to visit: Yes Minutes spent on Phone/Video with Pt.: 7 Coding Level of Care Code Tele Est Pt Level 4 (69672) Diagnoses GERD (gastroesophageal reflux disease) K21.9 Malnutrition E46 Altered bowel habits R19.4
== END 2023-04-30 14:11 | disposition home or self-care (01) ==
LOC: HO.HGI 08:40
PROVIDERS: PCP Internal Medicine; Visit Provider Internal Medicine Gastroenterology
DX: K21.9 Gastro-esophageal reflux disease without esophagitis (principal); E46 Unspecified protein-calorie malnutrition; R19.4 Change in bowel habit
CPT/HCPCS: 99214

== ENCOUNTER → 2023-04-30 08:40 | Outpatient (BNVA) | payer OTHER, SELFPAY | PROVIDERS: PCP Internal Medicine; Visit Provider Internal Medicine Gastroenterology ==

== ENCOUNTER 2023-05-15 15:13 | Emergency (ER) | payer OTHER, SELFPAY ==
--- NOTE | ~2023-05-15 | US_ITS ---
Examination: US appendix Indication: RLQ pain Comparison: No pertinent prior studies are currently available for comparison. Technique: Multiple sonographic images through the right lower quadrant were obtained with specific attention given for the appendix. Findings: Unfortunately the appendix is unable to be visualized sonographically. There is no discrete mass lesion or abscess appreciated in the right lower quadrant. Visualized portion of the right kidney grossly unremarkable. No obstructive changes. US/US appendix Impression: The appendix is unable to be visualized sonographically. There is no discrete mass lesion or abscess appreciated in the right lower quadrant.
--- NOTE | ~2023-05-15 | CT_ITS ---
EXAMINATION: CT ABDOMEN AND PELVIS WITHOUT CONTRAST CLINICAL INFORMATION: RLQ pain. COMPARISON: No pertinent prior studies are available for comparison. TECHNIQUE: Multidetector volumetric imaging was performed from the superior aspect of the liver through the pubic symphysis without contrast per request. Sagittal and coronal reformatted images were obtained on the technologist workstation. This CT examination was performed using dose optimization techniques as appropriate, variously including the following: *Automated exposure control *Adjustment of mA and/or kV according to patient size (this includes techniques or standardized protocols for targeted exams where dose is matched to indication/reason for exam; i.e. extremities or head) *Use of iterative reconstruction technique DLP: 442 mGy-cm. FINDINGS: LUNG BASES: The visualized lung bases are unremarkable. LIVER, GALLBLADDER, BILIARY TREE: The non-contrast liver is normal in size, shape, and attenuation. No focal hepatic lesion or biliary ductal dilatation is present. The gallbladder is unremarkable with no evidence of radiopaque gallstones, gallbladder wall thickening, or obvious pericholecystic inflammatory changes. PANCREAS: Unremarkable. SPLEEN: Unremarkable. ADRENAL GLANDS: Unremarkable. KIDNEYS AND URETERS: The kidneys are normal in size, shape, and attenuation. No hydronephrosis, hydroureter, or calculi seen. No perinephric stranding. BLADDER: Unremarkable. GASTROINTESTINAL TRACT: I do not appreciate any colonic wall thickening or pericolonic inflammatory changes within the nondecompressed areas of colon. Normal-appearing appendix without periappendiceal inflammatory changes or fluid visualized small bowel unremarkable. ABDOMINAL WALL: No significant hernia is appreciated. LYMPHOVASCULAR STRUCTURES: No lymphadenopathy. The aorta is unremarkable.. PELVIC VISCERA: Unremarkable. OSSEUS STRUCTURES: Unremarkable. CT/CT abdomen pelvis wo IV con IMPRESSION: No acute intra-abdominal process seen. Specifically normal-appearing appendix in the right lower quadrant
[2023-05-15 16:05] VITALS: BP 112/80; PULSE 81; RESP 16; TEMP 36.9; O2SAT 99; BMI 25.8
--- NOTE | 2023-05-15 16:23 | ED.ABDPAIN ---
HPI - Abdominal Pain General Chief Complaint: Abdominal Pain Stated Complaint: lower right side pain Time Seen by Provider: 05/15/23 21:16 Source: patient and family Mode of arrival: ambulatory Limitations: no limitations History of Present Illness HPI narrative: 20-year-old male history of male nutrition, pulmonary nodules, GERD, asthma presenting with right lower quadrant pain x6 hours reports no associated symptoms. Denies radiation of pain. Reports his pain is about a 4/10 right now however earlier today was a 6/10. Reports that earlier today pain was worsened by movement better rest. Patient denies fevers, chills, nausea, vomiting, headache, vision changes, changes in bowel habits or urination. Patient says is appendix. Related Data Home Medications Medication Instructions Recorded Confirmed albuterol sulfate 2.5 mg/3 mL 2.5 mg inhalation Q4H PRN breathing 01/17/21 11/16/22 (0.083 %) solution for nebulization albuterol sulfate 90 mcg/actuation 2 puff inhalation QID PRN wheezing 01/17/21 11/16/22 aerosol inhaler loratadine 10 mg tablet 10 mg PO DAILY 01/17/21 11/16/22 cyclobenzaprine 10 mg tablet mg PO 12/22/22 omeprazole 20 mg capsule,delayed 20 mg PO BID 12/22/22 12/22/22 release fluticasone propionate 50 1 spray intranasal DAILY 04/30/23 mcg/actuation nasal spray,suspension ibuprofen 800 mg tablet 800 mg PO TID 04/30/23 Previous Rx's Medication Instructions Recorded albuterol sulfate 90 mcg/actuation 2 inh inhalation Q4H PRN shortness 01/04/22 breath activated powder inhaler of breath or wheezing #1 ea lorazepam 1 mg tablet (Ativan) 1 mg PO BEDTIME PRN anxiety #20 09/29/22 tabs simethicone 125 mg chewable tablet 125 mg PO TID PRN abdominal 12/22/22 (Gas Relief (simethicone)) distention #90 tabs famotidine 40 mg tablet 40 mg PO BEDTIME #90 tabs 04/30/23 polyethylene glycol 3350 17 17 g PO DAILY #510 grams 04/30/23 gram/dose oral powder (Miralax) sodium,potassium,mag sulfates 17.5 See Rx Instructions PO .COMPLEX 04/30/23 gram-3.13 gram-1.6 gram oral soln #354 mL (Suprep Bowel Prep Kit) Allergies Allergy/AdvReac Type Severity Reaction Status Date / Time cephalexin [CEPHALEXIN] Allergy Severe Angioedema Verified 04/30/23 08:42 penicillin G Allergy Severe Angioedema Verified 04/30/23 08:42 Penicillins [PENICILLINS] Allergy Severe Angioedema Verified 04/30/23 08:42 Iodinated Contrast Media Allergy Mild Rash Verified 04/30/23 08:42 Review of Systems Review of Systems Constitutional : No Weight loss, No Fever, No Chills, No Fatigue, No Malaise ENT/Mouth : No sore throat, No Rhinorrhea Eyes: No Eye Pain, No Swelling, No Redness Cardiovascular : No Chest Pain, No SOB, No Dyspnea on Exertion, No Orthopnea, No Edema, No Palpitations Respiratory : No Cough, No Sputum, No Wheezing Gastrointestinal : No Nausea, No Vomiting, No Diarrhea, No Constipation, + abdominal Pain, No Hematochezia, No Melena Genitourinary : No Dysuria, No Urinary Frequency, No Hematuria, Musculoskeletal : No joint pain, No Myalgias, No Joint Swelling Skin : No Skin Lesions, No rash Neuro : No Weakness, No Numbness, No Dizziness, No Headache Psych : No Anxiety/Panic, No Depression All other systems reviewed and are negative Yes all other systems are reviewed and are negative [facility] Past Medical History Attestation statement: The following information was validated with the patient. Source: old records reviewed and nursing notes reviewed Medical History Pulmonary nodules Asthma Surgical History History of esophagogastroduodenoscopy (EGD) Family History Family History Paternal Grandfather Colon cancer Social History Patient Tobacco Use Status: Never used Tobacco Advance Directives: No Advance Directives Information Provided: No Physical Exam ED Vital Signs: Vital Signs - 24 hr 05/15/23 16:05 05/15/23 20:06 Temperature 98.5 F Pulse Rate 81 78 Respiratory Rate 16 Blood Pressure 112/80 111/71 Pulse Oximetry 99 97 Oxygen Delivery Method Room Air Room Air BMI result Body Mass Index 25.8 vss Appearance: Alert.? Oriented X3.? No acute distress.? Head: Normocephalic, atraumatic, no step-offs or deformities Eyes: Pupils equal, round and reactive to light.? Neck: Normal inspection.? Neck supple.? CVS: Normal heart rate and rhythm.? Pulses normal.? Respiratory: No respiratory distress.? Breath sounds normal.? Abdomen: Soft and very mild tenderness right lower quadrant. Normoactive bowel sounds.? Negative Jacome sign negative Rovsing, Skin: Skin warm and dry.? Normal skin color.? Normal skin turgor.? Extremities: No lower extremity edema.? No calf ttp. 5/5 strength to bilateral upper and lower extremities Neuro: Oriented X 3.? No motor deficit.? No sensory deficit. CN 2-12 intact Course Course Course Narrative: This is an RME: Additional HPI, ROS, PE not included below will be deferred to primary provider. This is a 53-aplp-rln-male, with no known medical problems Reevaluation(s) Reevaluation #1: Patient's CBC with slight leukocytosis no left shift. Chemistry with no acute findings requiring intervention. UA without infection. Ultrasound was unable to visualize the appendix therefore a CT was ordered. CT abdomen pelvis no acute intra-abdominal process, normal appearing appendix. Patient denies radiation of pain into testicles therefore I am not concerned for testicular torsion. Will discharge home with supportive measures. This is likely musculoskeletal. Educated patient on diagnosis and treatment plan, answered all question, patient verbalizes understanding. At this time patient will be discharged home, advised to return with new or worsening symptoms. Educated on worrisome signs and symptoms and when to return. At this time I feel comfortable discharge home. Time: 22:42 Medical Decision Making Medical Decision Making [facility] Narrative: 0 20-year-old male presents with right lower quadrant pain x6 hours Physical exam are quadrant tenderness This is likely musculoskeletal pain, unlikely kidney stone, appendicitis, acute abdomen, diverticulitis, obstruction, cholecystitis. Will rule out metabolic derangements and UTI Plan at this time labs, urine, imaging Differential Diagnosis Differential Diagnoses: The differential diagnosis associated with the presentation includes This is likely musculoskeletal pain, unlikely kidney stone, appendicitis, acute abdomen, diverticulitis, obstruction, cholecystitis. Will rule out metabolic derangements and UTI Admission/Observation Consideration of admission/observation: Escalation of care including admission/observation considered Unlikely Lab Data MDM Lab Attestation statement: I reviewed the patient's lab results. 05/15/23 18:00 05/15/23 18:00 Labs: Lab Results 05/15/23 Range/Units 18:00 WBC 11.0 H (4.8-10.8) X10*3/uL RBC 5.78 (4.60-5.80) X10*6/uL Hgb 16.4 (14.0-18.0) g/dl Hct 48.1 (42.0-52.0) % MCV 83.2 (80.0-98.0) fL MCH 28.4 (27.0-33.0) pg MCHC 34.1 (31.0-36.0) g/dl RDW 12.7 (11.0-16.0) % Plt Count 236 (160-400) X10*3/uL MPV 10.9 (9.4-12.4) fL Immature Gran % (Auto) 0.2 (0.0-0.4) % Neut % (Auto) 68.3 (45-73) % Lymph % (Auto) 22.5 (20-40) % Scurry % (Auto) 6.7 (2-11) % Eos % (Auto) 2.0 (0-4) % Baso % (Auto) 0.3 (0-2) % Lymph # (Auto) 2.5 (1.2-4.9) X10*3/uL Scurry # (Auto) 0.7 (0.1-1.2) X10*3/uL Eos # (Auto) 0.2 (0.0-0.4) X10*3/uL Baso # (Auto) 0.0 (0.0-0.2) X10*3/uL Abs Immat Gran (auto) 0.02 (0.00-0.03) X10*3/uL Absolute Neuts (auto) 7.6 (2.0-8.3) x10*3/uL Absolute Nucleated RBC 0.000 (0.0-0.012) X10*3/uL Nucleated RBC % (auto) 0.0 (0.0-0.2) /100WBC Sodium 140 (135-145) mmol/L Potassium 4.1 (3.3-5.1) mmol/L Chloride 105 (96-108) mmol/L Carbon Dioxide 30 H (22-29) mmol/L Anion Gap 9 L (12-20) BUN 11 (9-16) mg/dL Creatinine 0.98 (0.5-1.4) mg/dL Estim Creat Clear Calc 101.2 Estimated GFR > 60 Random Glucose 89 (60-115) mg/dL Calcium 9.9 D (8.4-10.2) mg/dL Total Bilirubin 0.7 (0.0-1.0) mg/dL Direct Bilirubin 0.2 (0.0-0.5) mg/dL AST 26 (5-37) U/L ALT 54 H (0-40) U/L Alkaline Phosphatase 62 (39-117) U/L Total Protein 7.9 (6.5-8.0) g/dL Albumin 4.5 (3.5-5.0) g/dL Lipase 28 (8-78) U/L Urine Color Yellow Urine Appearance Clear Urine pH 8.5 (5.0-9.0) Ur Specific [place] 1.020 (1.005-1.025) Urine Protein Negative (Neg-Trace) mg/dL Urine Glucose (UA) Negative (Negative) mg/dL Urine Ketones Negative (Negative) mg/dL Urine Blood Negative (Negative) Urine Nitrite Negative (Negative) Ur Leukocyte Esterase Negative (Negative) Independent Interpretation I performed an independent interpretation of an: CT Scan Radiology Impression Discussion of test interpretation with radiology: I have reviewed the radiologist's reading. Independent Historian Clinical information obtained from an independent historian. History obtained from or confirmed by: Other (Significant other) Critical Care Time Critical Care Time Critical Care Time: No Discharge Plan Discharge Clinical Impression: Abdominal pain, RLQ Patient Disposition: Home, Self-Care Instructions: Abdominal Pain (ED), Heat Pack Application (ED) Additional Instructions: Take your medications as prescribed. If you were prescribed antibiotics today, it is important that you take your medication to their entirety, do not skip any doses, do not finish them early. Follow-up with your primary care provider this week. Return to the emergency department with new or worsening symptoms. Such as fevers, chills, chest pain, shortness of breath, nausea, vomiting, dizziness, headache, vision changes, lethargy In case of emergency call 911 Your laboratory studies, urine and CT of the abdomen was reassuring. You can take ibuprofen every 6 hours, Tylenol every 4 as needed for pain or discomfort. Do not exceed maximum daily dose is listed on packaging. Your appendix appeared normal on CT scan if you experience worsening symptoms changes in the quality of pain, fevers, chills, nausea, vomiting, inability to tolerate food please return for prompt evaluation. Prescriptions: No Action albuterol sulfate 90 mcg/actuation aerosol powdr breath activated 2 inh inhalation Q4H PRN (Reason: shortness of breath or wheezing) Qty: 1 0RF lorazepam [Ativan] 1 mg tablet 1 mg PO BEDTIME PRN (Reason: anxiety) Qty: 20 0RF albuterol sulfate 90 mcg/actuation HFA aerosol inhaler 2 puff inhalation QID PRN (Reason: wheezing) albuterol sulfate 2.5 mg /3 mL (0.083 %) solution for nebulization 2.5 mg inhalation Q4H PRN (Reason: breathing) loratadine 10 mg tablet 10 mg PO DAILY cyclobenzaprine 10 mg tablet PO omeprazole 20 mg capsule,delayed release(DR/EC) 20 mg PO BID simethicone [Gas Relief (simethicone)] 125 mg tablet,chewable 125 mg PO TID PRN (Reason: abdominal distention) Qty: 90 2RF ibuprofen 800 mg tablet 800 mg PO TID fluticasone propionate 50 mcg/actuation spray,suspension 1 spray intranasal DAILY famotidine 40 mg tablet 40 mg PO BEDTIME Qty: 90 3RF polyethylene glycol 3350 [Miralax] 17 gram/dose powder 17 g PO DAILY Qty: 510 0RF sodium,potassium,mag sulfates [Suprep Bowel Prep Kit] 17.5-3.13-1.6 gram recon soln See Rx Instructions PO .COMPLEX Qty: 354 0RF Rx Instructions: DILUTE; drink 1/2 at 6-8 pm and half at 11 PM- 1AM Referrals: Lucien Rai III, MD [Primary Care Provider] - 2 days Stand Alone Forms: Work/School Release
[2023-05-15 18:07] LABS: MANUAL DIFF FLAG NO
[2023-05-15 18:15] LABS: Appearance Urine Clear; Color Urine Yellow; Glucose Urine UA Negative (Negative); Leukocyte Esterase Urine Negative (Negative); Nitrite Urine Negative (Negative); PH 8.5 (5.0-9.0); Urine Blood Negative (Negative); Urine Ketones Negative (Negative); Urine Protein Negative (Neg-Trace)
[2023-05-15 18:17] LABS: Basophils Percent Auto 0.3 % (0-2); Eosinophils Absolute Auto 0.2 X10*3/uL (0.0-0.4); Hematocrit 48.1 % (42.0-52.0); Hemoglobin 16.4 g/dl (14.0-18.0); Imm Gran Abs Auto 0.02 X10*3/uL (0.00-0.03); Imm Gran Pct Auto 0.2 % (0.0-0.4); Lymphocytes Absolute Auto 2.5 X10*3/uL (1.2-4.9); Lymphocytes Percent Auto 22.5 % (20-40); Mean Corpuscular HGB Conc 34.1 g/dl (31.0-36.0); Mean Corpuscular Hemoglobin 28.4 pg (27.0-33.0); Mean Corpuscular Volume 83.2 fL (80.0-98.0); Mean Platelet Volume 10.9 fL (9.4-12.4); Monocytes Absolute Auto 0.7 X10*3/uL (0.1-1.2); Monocytes Percent Auto 6.7 % (2-11); Neutrophils Absolute Auto 7.6 x10*3/uL (2.0-8.3); Neutrophils Percent Auto 68.3 % (45-73); Platelet Count 236 X10*3/uL (160-400); Red Blood Count 5.78 X10*6/uL (4.60-5.80); Red Cell Distribution Width 12.7 % (11.0-16.0)
[2023-05-15 18:22] LABS: Anion Gap 9 (12-20); Blood Urea Nitrogen 11 mg/dL (9-16); Calcium 9.9 mg/dL (8.4-10.2); Carbon Dioxide 30 mmol/L (22-29); Chloride 105 mmol/L (96-108); Creatinine Clr Calc Pharmacy 101.2; Estimated Glomerular Filt Rate > 60; Glucose Random 89 mg/dL (60-115); Potassium 4.1 mmol/L (3.3-5.1); Sodium 140 mmol/L (135-145)
[2023-05-15 18:23] LABS: Alanine Aminotransferase 54 U/L (0-40); Albumin Level 4.5 g/dL (3.5-5.0); Alkaline Phosphatase 62 U/L (39-117); Aspartate Amino Transferase 26 U/L (5-37); Bilirubin Direct 0.2 mg/dL (0.0-0.5); Bilirubin Total 0.7 mg/dL (0.0-1.0); Lipase 28 U/L (8-78); Total Protein 7.9 g/dL (6.5-8.0)
[2023-05-15 20:06] VITALS: BP 111/71; PULSE 78; O2SAT 97
--- OUTSIDE RECORDS SUMMARY | 2023-05-15 20:09 | XMS_ITS | Continuity of Care Document ---
Author Name Unknown Organization [facility] Address [address] [place] [id number]- Care Team Providers Care Waitress Name Role Phone Lucien Rai III, MD Primary Care Physician Encounter [facility] [place] Date(s): 09/06/20 - 10/06/20 [facility] [address] [address]- Attending Physician: Meg Echavarria Admitting Physician: AdmtrMeg Referring Physician: Admtr, Ar8 Allergies, Adverse Reactions, Alerts Substance Reaction Severity Status cephalexin Active penicillin Active Contrast Dye Active Medications Albuterol (Eqv-ProAir HFA) 90 mcg/inh inhalation aerosol 2 puffs, Inhalation, Every 6 hours, 0 Refills, Maintenance, 06/29/20 13:36:00 EST, Partial fill upon patient request if the prescription is for a schedule II opioid drug. Start Date: 06/29/20 Status: Ordered albuterol 0.083% inhalation solution 3 mL = 2.5 mg, Inhalation, Every 6 hours, PRN for wheezing, # 25 each, 0 Refills, Maintenance, 06/29/20 13:36:00 EST, Solution, Partial fill upon patient request if the prescription is for a scheduleII opioid drug. Start Date: 06/29/20 Status: Ordered Claritin 10 mg oral tablet 10 mg, 1, tablet, By Mouth, Daily, # 30 tablet, Refills 0, Maintenance, 06/29/20 13:35:00 EST, Partial fill upon patient request if the prescription is for a schedule II opioid drug. Start Date: 06/29/20 Status: Ordered SUMAtriptan 100 mg oral tablet See Instructions, TAKE 1 TABLET BY MOUTH AT ONSET OF MIGRAINE, MAY REPEAT DOSE IN 2 HOURS. NO MORE THAN 2 DOSES/24HRS, # 9 tablet, 2 Refills, Soft Stop, [id number] Start Date: 07/23/20 Status: Ordered Tylenol 8 Hour Caplet = 1,300 mg, By Mouth, Every 8 hours, 0 Refills, Maintenance, 06/29/20 13:36:00 EST, Partial fill upon patient request if the prescription is for a schedule II opioid drug. Start Date: 06/29/20 Status: Ordered Social History Social History Type Response Smoking Status Never (less than 100 in lifetime) entered on: 06/29/20 Sex
--- OUTSIDE RECORDS SUMMARY | 2023-05-15 20:09 | XMS_ITS | Continuity of Care Document ---
Author Name Unknown Organization [facility] Address [address] [place] [id number]- Care Team Providers Care Warehouse Trainer Name Role Phone Fredi MARTINEZ MD, Lucien Elaine Primary Care Physician Encounter [facility] [place] Date(s): 07/20/20 - 10/06/20 [facility] [address] [address]- Attending Physician: Lauren ANDERSON, Cherie Dougherty Admitting Physician: Lauren ANDERSON, Cherie Dougherty Referring Physician: Marii Godoy Allergies, Adverse Reactions, Alerts Substance Reaction Severity [...] # 9 tablet, 2 Refills, Soft Stop, [id number] Start Date: 07/23/20 Status: Ordered Tylenol 8 [...]
--- OUTSIDE RECORDS SUMMARY | 2023-05-15 20:09 | XMS_ITS | Continuity of Care Document ---
Author Name Unknown Organization [facility] Address [address] [facility], [address], [address] [place] [address]- Care Team Providers Care E Commerce Retailer Name Role Phone Fredi MARTINEZ MD, Lucien Ealine Primary Care Physician [phone] Encounter [facility] [place] Date(s): 05/17/20 - 06/16/20 [facility] [address], [address], [address] [place] [address]- Attending Physician: Meg Echavarria Admitting Physician: Meg Echavarria Referring Physician: Meg Echavarria Medications SUMAtriptan 100 mg oral tablet 1 tablet = 100 mg, By Mouth, Once, Use at onset of migraine. May repeat dose in 2 hours PRN. Do notexceed 2 doses in 24 hours or 2 days of use per week., # 12 tablet, 1 Refills, Soft Stop, 05/19/20 16:46:00 EST, [facility]/pharmacy #[id number], Partial fill upon... Start Date: 05/19/20 Status: Ordered
--- OUTSIDE RECORDS SUMMARY | 2023-05-15 20:09 | XMS_ITS | Continuity of Care Document ---
Author Name Unknown Organization [facility] Address [address] [place] [address]- Care Team Providers Care Pumper Head Name Role Phone Fredi MARTINEZ MD, Lucien Elaine Primary Care Physician [phone] Encounter [facility] [place] Date(s): 08/03/20 - 09/08/[address] [address] Attending Physician: Lauren ANDERSON, Cherie Dougherty Admitting Physician: Lauren ANDERSON, Cherie Dougherty Referring Physician: Lauren ANDERSON, Cherie Dougherty Allergies, Adverse Reactions, Alerts Substance Reaction Severity [...] tablet, 2 Refills, Soft Stop, [id number] Start Date: 07/23/20 Status: Ordered Tylenol 8 [...]
== END 2023-05-15 23:02 | disposition home or self-care (01) ==
PROVIDERS: Physician Assistant Medical; Emergency Provider Internal Medicine; PCP Internal Medicine
DX: R10.31 Right lower quadrant pain (principal); R10.2 Pelvic and perineal pain; Z79.899 Other long term (current) drug therapy
CPT/HCPCS: 36415; 74176; 76705; 80048; 80076; 81003; 83690; 85025; 99283; 99284

== ENCOUNTER 2023-05-21 13:16 | Outpatient (AMB) | payer OTHER, SELFPAY ==
--- NOTE | 2023-05-21 13:19 | MHC.OFFVIS ---
Intake Vital Signs 05/21/23 13:22 Height 5 ft 6 in Weight 162 lb 11.218 oz BMI 26.3 BP 106/80 Blood Pressure Location Lt brachial Position Sitting Pulse 86 Intake Visit Reasons: NPV/Lucien Fredi/Palpitations and chest pain Intake Note: NPV w/ EKG Unemployment Insurance Director Required: No Accompanied by: Sister Allergies cephalexin [CEPHALEXIN] Allergy (Severe, Verified 05/21/23 13:23) Angioedema penicillin G Allergy (Severe, Verified 05/21/23 13:23) Angioedema Penicillins [PENICILLINS] Allergy (Severe, Verified 05/21/23 13:23) Angioedema Iodinated Contrast Media Allergy (Mild, Verified 05/21/23 13:23) Rash Medication List - Last Reconciled 05/21/23 by Denilson Miller MD albuterol sulfate 90 mcg/actuation 2 inhalations inhalation Q4H PRN albuterol sulfate 90 mcg/actuation 2 puffs inhalation QID PRN albuterol sulfate 2.5 mg inhalation Q4H PRN fluticasone propionate 50 mcg/actuation 1 spray intranasal DAILY ibuprofen 800 mg PO TID loratadine 10 mg PO DAILY lorazepam (Ativan) 1 mg PO BEDTIME PRN omeprazole 20 mg PO BID simethicone (Gas Relief (simethicone)) 125 mg PO TID PRN HPI HPI Comments History of Present Illness Details Fam is here for consultation regarding palpitations. His sister acts as retoucher and has signed the form. She states that patient has been feeling sensations of heart fluttering at different times. This can happen randomly and there is no specific pattern. Can last for a few minutes but nothing too prolonged. On several occasions, he has also been describing shortness of breath with activity. He is described to have asthma history and not clear if that plays a role. Any case, whenever they go up stairs he gets short of breath. No known cardiac issues in the past including cardiomyopathy or anything else of concern. [facility] Medical History Pulmonary nodules Asthma Surgical History History of esophagogastroduodenoscopy (EGD) Family History (Updated 05/21/23 @ 13:25 by Opal Duckworth) Paternal Grandfather Colon cancer Father Heart valve disease (Updated 05/21/23 @ 13:25 by Opal Duckworth) Alcohol intake: never Patient Tobacco Use Status: Never used Tobacco Review of Systems Const Denies chills, Denies daytime sleepiness, Denies fatigue, Denies fever(s), Denies frequent falls, Denies night sweats, Denies snoring, Denies weakness, Denies weight gain and Denies weight loss Eyes Denies loss of vision ENT Denies dizziness and Denies hearing loss Card Denies chest pain, Denies chest pain with activity, Denies syncope, Denies rapid heart rate, Denies edema, Denies claudication, Denies leg edema, Denies lightheadedness, Denies palpitations, Denies dyspnea, Denies dyspnea on exertion and Denies orthopnea Resp Denies cough, Denies excessive phlegm production, Denies dyspnea, Denies dyspnea on exertion, Denies snoring and Denies wheezing GI Denies abdominal pain, Denies hematochezia, Denies change in bowel habits, Denies change in stool character, Denies heartburn, Denies nausea and Denies vomiting Denies hematuria, Denies dysuria and Denies urinary frequency Musc Denies arthralgias, Denies muscle weakness, Denies numbness and Denies tingling Skin/Breast Denies nail changes and Denies rash Neuro Denies Abnormal speech present, Denies dizziness, Denies syncope, Denies frequent falls, Denies loss of vision, Denies memory loss, Denies numbness, Denies tingling and Denies weakness Psych Denies depression and Denies memory loss Endo Denies fatigue and Denies palpitations Aller/Immun Denies wheezing Physical Exam Vital Signs: Last Vital Signs Pulse 86 05/21/23 13:22 BP 106/80 05/21/23 13:22 BMI result Body Mass Index 26.3 Const General: comfortable and no acute distress Orientation/consciousness: patient oriented x3 HEENT Other: Unremarkable Head: Yes normal to inspection Neck Neck: Yes normal visual inspection Chest Chest palpation & inspection: normal inspection of the chest Resp Auscultation: clear to auscultation bilaterally Cardio Palpation: normal PMI Heart sounds: S1 normal heart sound present, S2 normal heart sound present, no gallops, no murmurs and no rubs GI Palpation (GI): Soft to palpation Back/Spine/Pelvis Other: unremarkable Skin General skin exam: no rashes or lesions noted Neuro General: patient oriented x3 Speech: No Abnormal speech present Extrem General: Yes normal to inspection Psych Mental Status: mental status grossly normal Assessment & Plan Assessment & Plan (1) Heart palpitations: Code(s): R00.2 - Palpitations (2) SOB (shortness of breath): Code(s): R06.02 - Shortness of breath Plan EKG shows sinus rhythm at 86/Min; no significant ST-T changes and otherwise unremarkable. Normal [place] and corrected QT. Symptoms of palpitations; shortness of breath with activity. Some underlying anxiety component. Will start with an echocardiogram and Holter monitor. Based on findings, can plan further care. Otherwise, reassurance only at this time. Discussed with sister who came for appointment. Orders: Orders CA echo transthoracic complete Today R00.2 - Palpitations, R06.02 - Shortness of breath ECG 14 day holter monitor Today R00.2 - Palpitations Coding Level of Care Code New Pt Level 3 (41945) Diagnoses Heart palpitations R00.2 SOB (shortness of breath) R06.02
[2023-05-21 13:22] VITALS: BP 106/80; PULSE 86; BMI 26.3
== END 2023-05-21 13:41 | disposition home or self-care (01) ==
PROVIDERS: PCP Internal Medicine; Visit Provider Internal Medicine
DX: R00.2 Palpitations (principal); R06.02 Shortness of breath
CPT/HCPCS: 99203

== ENCOUNTER → 2023-05-21 13:16 | Outpatient (BNVA) | payer OTHER, SELFPAY | PROVIDERS: PCP Internal Medicine; Visit Provider Internal Medicine | DX: R00.2 Palpitations (principal); R06.02 Shortness of breath; R91.8 Other nonspecific abnormal finding of lung field; J45.909 Unspecified asthma, uncomplicated | CPT/HCPCS: 99202 ==

== ENCOUNTER → 2023-06-21 13:56 | Outpatient (REF) | payer OTHER, SELFPAY ==
--- NOTE | 2023-06-21 14:03 | CA_ITS ---
Transthoracic Echocardiogram Patient (Last, First, Middle): Fam Goldberg, Gender: Male Date of : 1995 Age: 28 Procedure Date: 06/21/2023 Procedure Type: Transthoracic Echocardiogram Location: OP Height: 167.64 cm Weight: 71.22 kg BSA: 1.80 m2 Heart Rate: bpm BP: 118 / 80 mmHg Manager Client Support: TO Referring MD: Denilson Miller MD Symptoms: R00.2 - Palpitations Study Quality: Fair ECG Rhythm: Sinus Conclusions: - The left ventricular systolic function is normal. The visually estimated ejection fraction is between 65-70%. - No obvious valvular pathology seen on this study. Findings Procedure Information The patient declines contrast. Left Ventricle Normal left ventricular cavity size. There is normal left ventricular wall thickness. The left ventricular systolic function is normal. The visually estimated ejection fraction is between 65-70%. There is no evidence of regional wall motion abnormalities. Diastolic function is normal for age. Right Ventricle Normal right ventricular cavity size and systolic function. Atria Both atria are normal in size. Aortic Valve There is a normal trileaflet aortic valve. There is no aortic valve stenosis. There is no aortic valve regurgitation. Mitral Valve The mitral valve appears normal. There is trace mitral valve regurgitation. There is no mitral valve stenosis. Pulmonic Valve The pulmonic valve is likely normal. Tricuspid Valve Normal tricuspid valve structure. There is trace tricuspid valve regurgitation. There is no evidence of pulmonary hypertension. Great Vessels The asc aorta is normal in size. Venous The inferior vena cava is normal in size and collapses greater than 50% with inspiration. Pericardium/Pleural There is no evidence of pericardial effusion. Prior Study Comparison No prior study available for comparison. Recommendations, Care & Conclusions No obvious valvular pathology seen on this study. Measurements 2D Linear Measurements IVSd: 0.82 0.6-0.9/0.6-1.0 cm LVIDd: 4.24 3.9-5.3/4.2-5.9 cm LVIDd Index: 2.36 2.4-3.2/2.2-3.1 cm/m2 LVIDs: 2.82 2.0-3.6 cm LVPWd: 0.70 0.7-1.1 cm LA Diam: 2.40 2.7-3.8/3.0-4.0 cm LAIDs Index: 1.33 1.5-2.3 cm/m2 LV Mass: 118.96 67-162/88-224 g LV Mass Index: 66.09 43-95/49-115 g/m2 LVOT Diam: 2.00 3.0+(-)1.3 cm Mitral Valve MV Pk E: 0.63 MV PK A: 0.59 MV Decel Time: 209.00 E/A: 1.10 E'Lateral: 12.70 E'Medial: 10.70 E/E' Med: 5.90 E/E' Lat: 5.00 PHT: 61.00 MVA PHT: 3.61 Decel [place]: 3.03 Aortic Valve AoV Pk [place]: 1.33 AoV Mn [place]: 0.90 AoV VTI: 0.22 AoV Pk Grad: 7.00 Aov Mn Grad: 4.00 PETER Cont.VTI: 2.75 LVOT LVOT Pk [place]: 1.14 LVOT Mn [place]: 0.71 LVOT VTI: 0.20 LVOT Pk Grad: 5.00 LVOT Mn Grad: 2.00 LVOT Diam: 2.00 LVOT Area: 3.14 Diastolic Function MV Pk E: 0.63 MV Pk A: 0.59 E/A: 1.10 E'Medial: 10.70 E/E' Med: 5.90 E' Laterial: 12.70 E/E' Lat: 5.00 Right Ventricle TAPSE (mm): 17.80 TVS' Figueroa: 12.30 Tricuspid Valve RA Press: 3.00 Great Vessels Aorta Sinus of Valsalva: 3.04 2.0-3.5 cm Ao Asc: 2.60 2.1-3.4 cm Updated in Other Vendor System with Status of Final Denilson Miller MD electronically signed on 06/23/2023 12:02:38 PM with status of Final
--- NOTE | 2023-06-21 14:03 | HM_ITS ---
Conclusion: 1. Patient was monitored for total period of 22 hours 2. Baseline was normal sinus rhythm with average heart of 75 beats per minute 3. No significant pauses or arrhythmias noted 4. No patient reported events MTDD
== END ==
LOC: HO.CARD 13:56
PROVIDERS: PCP Internal Medicine; Visit Provider Internal Medicine
DX: R00.2 Palpitations (principal); R06.02 Shortness of breath
CPT/HCPCS: 93246; 93306

== ENCOUNTER → 2023-06-21 14:03 | Outpatient (BNV) | payer OTHER, SELFPAY | PROVIDERS: PCP Internal Medicine; Visit Provider Internal Medicine | DX: R00.2 Palpitations (principal) | CPT/HCPCS: 93227; 93306 ==

== ENCOUNTER 2024-01-02 06:39 | Outpatient (REF) | payer OTHER, SELFPAY ==
[2024-01-02 06:59] LABS: MANUAL DIFF FLAG NO
[2024-01-02 07:59] LABS: Basophils Percent Auto 0.4 % (0-2); Eosinophils Absolute Auto 0.4 X10*3/uL (0.0-0.4); Eosinophils Percent Auto 5.3 % (0-4); Hemoglobin 16.2 g/dl (14.0-18.0); Imm Gran Abs Auto 0.02 X10*3/uL (0.00-0.03); Imm Gran Pct Auto 0.2 % (0.0-0.4); Lymphocytes Absolute Auto 2.8 X10*3/uL (1.2-4.9); Mean Corpuscular HGB Conc 34.5 g/dl (31.0-36.0); Mean Corpuscular Volume 81.3 fL (80.0-98.0); Mean Platelet Volume 11.4 fL (9.4-12.4); Monocytes Absolute Auto 0.7 X10*3/uL (0.1-1.2); Monocytes Percent Auto 8.6 % (2-11); Neutrophils Absolute Auto 4.2 x10*3/uL (2.0-8.3); Neutrophils Percent Auto 51.5 % (45-73); Platelet Count 240 X10*3/uL (160-400); Red Blood Count 5.78 X10*6/uL (4.60-5.80); Red Cell Distribution Width 13.2 % (11.0-16.0); White Blood Count 8.2 X10*3/uL (4.8-10.8)
[2024-01-02 08:21] LABS: Alanine Aminotransferase 48 U/L (0-40); Albumin Level 4.5 g/dL (3.5-5.0); Alkaline Phosphatase 65 U/L (39-117); Anion Gap 14 (12-20); Aspartate Amino Transferase 23 U/L (5-37); Bilirubin Total 0.4 mg/dL (0.0-1.0); Blood Urea Nitrogen 11 mg/dL (9-16); Calcium 9.5 mg/dL (8.4-10.2); Carbon Dioxide 23 mmol/L (22-29); Chloride 108 mmol/L (96-108); Estimated Glomerular Filt Rate > 60; Glucose Random 102 mg/dL (60-115); Potassium 3.6 mmol/L (3.3-5.1); Sodium 141 mmol/L (135-145); Total Protein 7.5 g/dL (6.5-8.0)
[2024-01-02 08:42] LABS: Folate 6.8 ng/mL (> or = 4.0); Vitamin B12 685 pg/mL (200-900)
[2024-01-02 08:46] LABS: TSH reflex Free T4 0.14 uIU/mL (0.32-4.0)
[2024-01-02 09:20] LABS: Free T4 (Free Thyroxine) 1.14 ng/dL (0.71-1.85)
== END 2024-01-02 06:40 | disposition home or self-care (01) ==
LOC: HO.LAB 06:39
PROVIDERS: PCP Internal Medicine; Visit Provider Internal Medicine Gastroenterology
DX: K21.9 Gastro-esophageal reflux disease without esophagitis (principal); E46 Unspecified protein-calorie malnutrition; R19.4 Change in bowel habit; K75.81 Nonalcoholic steatohepatitis (NASH)
CPT/HCPCS: 36415; 80053; 82607; 82746; 83735; 84439; 84443; 85025

== ENCOUNTER 2024-01-07 11:14 | Outpatient (AMB) | payer OTHER, SELFPAY ==
--- NOTE | 2024-01-07 11:15 | MHC.OFFVIS ---
Intake Visit Reasons: 4 month follow up Intake Note: Marleny - Patients sister and PSYCHIATRIC SECURITY NURSE was on the phone to go over information for patient. CC: has questions reqarding the last lab results that were done. Wool Fleece Sorter Required: No Allergies cephalexin [CEPHALEXIN] Allergy (Severe, Verified 05/21/23 13:23) Angioedema penicillin G Allergy (Severe, Verified 05/21/23 13:23) Angioedema Penicillins [PENICILLINS] Allergy (Severe, Verified 05/21/23 13:23) Angioedema Iodinated Contrast Media Allergy (Mild, Verified 05/21/23 13:23) Rash HPI HPI 4 month follow up: Details: 28 yr old m being called for f/u RECAP: He had 3 yr of bad acid reflux, regurgitation had choking sensation felt omeprazole does not work for him, taking for 1 yr--taking 20 mg daily (he felt 40 mg made him constipated) he has burping he was intolerant of pantoprazole and he felt it made him worse he was sent nexium but never received PCP gave him omerpazole 20 mg and he gelt good with this EGD:10/2022 erosive esophagitis gastritis hiatal hernia, 3 cm Was recommended on high dose PPI for 3 months INTERIM: He is taking omeprazole 20 mg BID and feels it is working well he has v occ throat burning but no choking, no regurgitation no nausea or vomiting denies abdominal pain he still has anxiety -not taking any medication stools are regular -v occ constipation--he refuses colonoscopy labs with mild ALT and low TSH but nml fT4 EXAM: GENERAL: The patient is well developed and nontoxic appearing A/P: 1/ GERD, with regurgitation 2/ Constipation, occasional -not requiring laxatives 3/ anxiety PLAN: 1/ recheck labs TSH and LFT, if ALt remains elevated US liver 2/ cont with PPI 3/ can use OTc laxatives for occasional constipation --advised on colonoscopy but he refuses this at this time 4/ advised to see PCP for anxiety, will help his GI issues as well PFSH Medical History Pulmonary nodules Asthma Surgical History History of esophagogastroduodenoscopy (EGD) Family History (Updated 05/21/23 @ 13:25 by Opal Duckworth) Paternal Grandfather Colon cancer Father Heart valve disease Social History (Updated 05/21/23 @ 13:25 by Opal Duckworth) Alcohol intake: never Patient Tobacco Use Status: Never used Tobacco Telehealth Telehealth Telehealth Platform: [employer] Location of provider rendering services: practice address Location of patient: address on file Patient Identification confirmed using: Name, : Yes Telehealth method: video Patient verbally consented to treatment: Yes Patient verbally consented to billing insurance company: Yes Patient informed of any privacy concerns related to visit: Yes Minutes spent on Phone/Video with Pt.: 11 Assessment & Plan Assessment & Plan (1) GERD (gastroesophageal reflux disease): Code(s): K21.9 - Gastro-esophageal reflux disease without esophagitis Category: Medical Plan: see above Coding Level of Care Code Tele Est Pt Level 4 (43416) Diagnoses GERD (gastroesophageal reflux disease) K21.9
== END 2024-01-07 12:48 | disposition home or self-care (01) ==
LOC: HO.HGI 11:14
PROVIDERS: PCP Internal Medicine; Visit Provider Internal Medicine Gastroenterology
DX: K21.9 Gastro-esophageal reflux disease without esophagitis (principal)
CPT/HCPCS: 99214

== ENCOUNTER → 2024-01-07 11:14 | Outpatient (BNVA) | payer OTHER, SELFPAY | PROVIDERS: PCP Internal Medicine; Visit Provider Internal Medicine Gastroenterology ==

== ENCOUNTER 2024-08-25 12:50 | Outpatient (RCR) | payer OTHER, SELFPAY | END 2024-10-10 07:44 | disposition home or self-care (01) | LOC: HO.PT 12:50 | PROVIDERS: PCP Internal Medicine; Visit Provider Internal Medicine | DX: M25.552 Pain in left hip (principal) | CPT/HCPCS: 97110; 97161; 97530 ==

== ENCOUNTER 2024-12-19 09:31 | Outpatient (AMB) | payer OTHER, SELFPAY ==
--- NOTE | 2024-12-19 09:38 | MHC.OFFVIS ---
Intake Visit Reasons: possible urethral divericula Intake Note: New Patient is present for possible urethral divericula Urology Rx: none Blood Thinners:none Exterior Interior Specialist Required: Yes Exterior Interior Specialist Services: Exterior Interior Specialist Offered & Declined Accompanied by: Sister Allergies cephalexin (CEPHALEXIN) Allergy (Severe, Verified 05/21/23 13:23) Angioedema penicillin G Allergy (Severe, Verified 05/21/23 13:23) Angioedema Penicillins (PENICILLINS) Allergy (Severe, Verified 05/21/23 13:23) Angioedema Iodinated Contrast Media Allergy (Mild, Verified 05/21/23 13:23) Rash HPI Comments Details: Question of urethral diverticular seen on MRI done at [facility] office cystoscopy [facility] Medical History Pulmonary nodules Asthma Surgical History History of esophagogastroduodenoscopy (EGD) Family History (Updated 05/21/23 @ 13:25 by Opal Duckworth) Paternal Grandfather Colon cancer Father Heart valve disease Social History (Updated 05/21/23 @ 13:25 by Opal Duckworth) Alcohol intake: never Patient Tobacco Use Status: Never used Tobacco Results AMB Urinalysis, Automated UA Leukoctes 0 Tomy/uL Last Edit by Tatyana Montgomery MA on 12/19/24 15:40 UA Nitrite Negative Last Edit by Tatyana Montgomery MA on 12/19/24 15:40 UA Urobilinogen 3.5 mg/dL Last Edit by Tatyana Montgomery MA on 12/19/24 15:40 UA Protein 0 mg/dL Last Edit by Tatyana Montgomery MA on 12/19/24 15:40 UA pH 6.0 Last Edit by Tatyana Montgomery MA on 12/19/24 15:40 UA Blood 25 Oliver/uL Last Edit by Tatyana Montgomery MA on 12/19/24 15:40 UA Specific Ray 1.015 Last Edit by Tatyana Montgomery MA on 12/19/24 15:40 UA Ketone Negative Last Edit by Tatyana Montgomery MA on 12/19/24 15:40 UA Bilirubin 0 mg/dL Last Edit by Tatyana Montgomery MA on 12/19/24 15:40 UA Glucose 60 mg/dL Last Edit by Tatyana Montgomery MA on 12/19/24 15:40 Assessment & Plan Assessment & Plan Orders: Orders AMB Urinalysis Automated Today Z13.9 - Encounter for screening, unspecified Coding
--- OUTSIDE RECORDS SUMMARY | 2024-12-19 09:56 | XMS_ITS | Clinical Summary ---
Author Organization [facility] Address [address] [place] [address] Phone Care Team Providers Care Corporate Quality Manager Name Role Phone Lucien Rai MD Primary Care Provider [phone] Allergies Active Allergy Reactions Criticality Noted Date Comments Cephalexin 09/26/2013 Other 05/06/2024 Iv Contrast Dye Penicillins 09/26/2013 Medications lactulose (CHRONULAC) solution Take 15-30 mL by mouth daily (with breakfast). 4 Active sertraline (ZOLOFT) 50 mg tablet Take 0.5 Tablets by mouth daily. 4 Active diclofenac (VOLTAREN) 1 % topical gel Apply 4 g topically 4 times daily. 4 Active fluticasone-adama meterol (ADVAIR DISKUS) 250-50 mcg/dose diskus inhaler Inhale 1 Tablet into the lungs 2 times daily. 3 Active fluticasone propionate (FLONASE) 50 mcg/actuation nasal spray 1 [place] by Nasal route daily. 3 Active loratadine (CLARITIN) 10 mg tablet Take 1 tablet (10 mg total) by mouth 1 (one) time each day. 1 Active albuterol 2.5 mg /3 mL (0.083 %) nebulizer solution Take 1 Vial by nebulization every 4 hours as needed for Shortness of Breath or Cough. 1 Active SUMAtriptan (IMITREX) 25 mg tablet May repeat dose once after 2 hours, if needed. 0 Active albuterol HFA (PROAIR HFA ; PROVENTIL HFA ; VENTOLIN HFA) 90 mcg/actuation inhalerIndicati ons:Uncomplicat ed asthma, unspecified asthma severity, unspecified whether persistent Inhale 2 puffs by mouth every 4 (four) hours if needed for wheezing. 8.5 g 5 4 Active fluticasone propionate (FLONASE) 50 mcg/actuation nasal spray Administer 2 sprays into each nostril 1 (one) time each day. Shake gently. Before first use, prime pump. After use, clean tip and replace cap. 16 g 5 4 06/09/20 25 Active loratadine (CLARITIN) 10 mg tablet Take 1 tablet (10 mg total) by mouth 1 (one) time each day. 30 each 5 4 Active omeprazole (PriLOSEC) [address] capsule Take 1 capsule (20 mg total) by mouth 1 (one) time each day. 90 capsule 1 5 Active ibuprofen (ADVIL,MOTRIN) 800 mg tablet Take 1 tablet (800 mg total) by mouth every 8 (eight) hours if needed for mild pain. 270 tablet 1 5 Active predniSONE (DELTASONE) 10 mg tablet 3 tabs po x 3 days then 2 tabs po x 3 days then 1 tab po x 3 days 10 each 5 Active meclizine (ANTIVERT) 12.5 mg tablet Take 1 tablet (12.5 mg total) by mouth 3 (three) times a day if needed for dizziness. 30 tablet 11 5 09/24/19 26 Active Active Problems Problem Noted Date Diagnosed Date Asthma 05/06/2024 Overview (05/06/2024): 7 mo gestation age upon Anxiety 04/15/2020 Intractable migraine with aura without status mi grainosus 01/13/2020 Prematurity 01/06/2019 Thyroid cyst 01/06/2019 Allergic rhinitis 12/21/2017 Rupture of anterior cruciate ligament of right k nee 11/14/2017 Tear of lateral meniscus of right knee, current 11/14/2017 GERD (gastroesophageal reflux disease) 8 Lung nodules 09/26/2013 Encounters Date Type Department Care Team Description 11/10/2024 9:36 AM EDT - 11/10/2024 11:59 PM EDT Hospital Encounter Radiology Department - [address] [phone] Left hip pain Discharge Disposition: Home or Self Care 09/23/2024 3:15 PM EDT Office Visit Adult Medicine [address] [phone] Lucien Rai MD Left hip pain (Primary Dx); Vertigo; Hypotension, unspecified hypotension type from Last 3 Months Immunizations Name Administration Dates Next Due PPD Test 09/01/2013,04/15/2013 Surgical History Surgery Date Site/Laterality Comments HERNIA REPAIR PROCEDURE: HISTORICAL HERNIA REPAIR/UMB; COMMENT: < 1 year old Medical History Medical History Date Comments Asthma since born. DX:Asthma; COMME NT: 7 mo gestation age upon GERD (gastroesophageal reflu x disease) 07/30/2017 DX:GERD (gastroesophageal re flux disease) Thyroid cyst 01/06/2019 DX:Thyroid cyst Family History Medical History Relation Name Comments Hypertension Father Other: CKD Father Other: DVT Father s/p filter Other: Valvular disease Father Blindness Maternal Grandfather Cataracts Maternal Grandfather Dementia Maternal Grandfather Diabetes Maternal Grandmother Other: CKD Maternal Grandmother Seizures Mother Thyroid disease Mother hypothyroidi sm? Other: no AR Other Prostate cancer Paternal Grandfather Alzheimer's disease Paternal Grandmother Asthma Sister Other: hypoglycemia Sister Glaucoma Neg Hx Macular degeneration Neg Hx Strabismus Neg Hx Relation Name Status Comments Father Alive Maternal Grandfather Alive Maternal Grandmother Alive Mother Alive Other Paternal Grandfather Paternal Grandmother Alive Sister Alive Social History Tobacco Use Types Packs/Day Years Used Date Smoking Tobacco: Never Smokeless Tobacco: Never Tobacco Cessation:Counseling Given: Not Answered Alcohol Use Standard Drinks/Week Comments No 0 (1 standard drink = 0.6 oz pur e alcohol) Housing Instability Answer Date Recorde d Are you worried that in the next 2 months you may not have stable housing? No 09/23/2024 Food Access & Nutrition Answer Date Rec orded Do you have access to a vari ety of food including fruits and vegetables? Yes 09/23/2024 Access to Healthcare Answer Date Record ed Within the last 3 months, ho w many times did you visit the emergency department for your medical care? 0 09/23/2024 Health Literacy Answer Date Recorded How often do you need to hav e someone help you when you read instructions, pamphlets, or other written material from your doctor or pharmacy? Often 09/23/2024 Caregiver: How often do you need to have someone help you when you read instructions, pamphlets, or other written material from your doctor or pharmacy? Not on file 09/23/2024 Financial Risk Answer Date Recorded How hard is it for you to pa y for the very basics like food, housing, medical care, and air conditioning / heating? Unable to respond 09/23/2024 Transportation Answer Date Recorded Has the lack of transportati on kept you from meetings, work, or from getting things needed for daily living? Unable to respond 09/23/2024 Has the lack of transportati on kept you from medical appointments or from getting medications? Unable to respond 09/23/2024 Social Isolation Answer Date Recorded How often do you feel lonely or isolated from th ose around you? Never 09/23/2024 Food Risk Answer Date Recorded Within the past 12 months we worried whether our food would run out before we got money to buy more. Never true 09/23/2024 Within the past 12 months th e food we bought just didn't last and we didn't have money to get more. Never true 09/23/2024 Dependent Care Answer Date Recorded Do you need help finding or paying for care for your loved ones. For example, child care education coordinator or elderly care for an older adult? No 09/23/2024 Education Answer Date Recorded Do you think completing more education or training, like finishing a GED, going to college, or learning a trade, would be helpful for you? N/A 09/23/2024 Employment and Income Answer Date Recor ded During the last four weeks, have you been actively looking for work? Unable to respond 09/23/2024 Living Situation Answer Date Recorded What is your living situation? 0 09/23/2024 Sex and Gender Information Value Date Recorded Sex Assigned at Male 07/03/2024 9:03 AM EST Legal Sex Male 4:56 PM EST Gender Identity Male 07/03/2024 9:03 AM EST Sexual Orientation Straight 07/03/2024 9: 03 AM EST Obstetrics History Last Filed Vital Signs Vital Sign Reading Time Taken Comments Blood Pressure 93/67 09/23/2024 3:14 PM EDT Pulse 89 09/23/2024 3:14 PM EDT Temperature 36.7 C (98 F) 09/23/2024 3:14 PM EDT Respiratory Rate 14 09/23/2024 3:14 PM EDT Oxygen Saturation 97% 09/23/2024 3:14 PM EDT Inhaled Oxygen Concentration - - Weight 68 kg (150 lb) 09/23/2024 3:14 PM EDT Height 167.6 cm (5' 6 ) 09/23/2024 3:14 PM EDT Body Mass Index 24.21 09/23/2024 3:14 PM EDT Plan of Treatment Upcoming Encounters Date Type Department Care Team (Late st Contact Info) Description 01/13/2025 11:00 AM EDT Office Visit Orthopedic Surgery - [place] [address] [phone] Leta Merlos MD [address] [address] 02/27/2025 2:00 PM EDT Office Visit Adult Medicine [address] [phone] Lucien Rai MD [address] [place] [phone] Health Maintenance Due Date Last Done Comments DTaP,Tdap,and Td Vaccines (1 - Tdap) 2014 Hepatitis B Vaccines (1 of 3 - 19+ 3-dose series) 2014 Pneumococcal Vaccine: Pediatrics (0 to 5 Years) and At-Risk Patients (6 to 64 Years) (1 of 2 - PCV) 2014 HIV Screening 06/03/2022 Hepatitis C Screening 06/03/2022 COVID-19 Vaccine ( - 2023-2 5 season) 2024 Influenza Vaccine (Season Ended) 2025 Depression Screening 09/23/2025 09/23/2024, 02/08/2024 Social Influencers of Health Screening 09/23/2025 09/23/2024 Cholesterol Screening (Lipid Panel) 06/12/2027 06/12/2022 HIB Vaccines Aged Out No longer eligi ble based on patient's age to complete this topic HPV Vaccines Aged Out No longer eligi ble based on patient's age to complete this topic Hepatitis A Vaccines Aged Out No long er eligible based on patient's age to complete this topic IPV Vaccines Aged Out No longer eligi ble based on patient's age to complete this topic MMR Vaccines Aged Out No longer eligi ble based on patient's age to complete this topic Meningococcal ACWY Vaccine Aged Out N o longer eligible based on patient's age to complete this topic Meningococcal B Vaccine Aged Out No l onger eligible based on patient's age to complete this topic RSV Immunization Patients Under 20 months Aged Out No longer eligible b ased on patient's age to complete this topic Varicella Vaccines Aged Out No longer eligible based on patient's age to complete this topic Procedures Procedure Name Priority Date/Time Associated Diagnosis Comments MR HIP WO CONTRAST LEFT Routine 11/10/2024 10:37 AM EDT Left hip pain CBC WITH AUTO DIFFERENTIAL Routine 09/30/2024 8:11 AM EDT Vertigo CBC AND DIFFERENTIAL Routine 09/30/2024 8:11 AM EDT Vertigo BASIC METABOLIC PANEL Routine 09/30/2024 8:11 AM EDT Vertigo DEPRESSION SCREENING Routine 02/08/2024 LIPID PANEL Routine 06/12/2022 from Last 3 Months or Most Recently Relevant to Health Maintenance Results * MR Hip wo Contrast Left (11/10/2024 10:37 AM EDT) Anatomical Region Laterality Modality Lower Extremities, Hip Left Magnetic Resonance 11/11/2024 4:10 AM EDT Impressions 11/11/2024 4:20 AM EDT Unremarkable MRI of the left hip -------- FINAL REPORT -------- Dictated By: Kristine Leggett Dictated Date: 11/11/2024 04:10 ET Assigned Physician: Kristine Leggett Reviewed and Electronically Signed By: Kristine Leggett Signed Date: 11/11/2024 04:20 ET Workstation ID: [id number] Transcribed By: Self Edit Transcribed Date: 11/11/2024 04:10 ET Narrative 11/11/2024 4:20 AM EDT INDICATION: left hip pain ? tear x 2 years s/p fall. pt has tried physical therapy but had to stop after 6 visits 2nd to increased pain COMPARISON: Radiographs dated 01/2023 TECHNIQUE: Multiplanar, multisequence MRI was performed of the left hip without intravenous contrast administration. FINDINGS: Bone: No acute fracture or dislocation of the left hip. The contralateral right hip is unremarkable. The visualized pelvis is unremarkable. Bone marrow signal is slightly heterogeneous without suspicious focal lesion. Soft Tissues: Bilateral common hamstring origin tendons are intact. Physiologic joint fluid bilaterally. Left gluteus medius and minimus tendons are intact without tear. No significant left-sided greater trochanteric bursitis. T2 hyperintense lesions noted at the level of the symphysis pubis lesion approximately 17 x 13 mm and 17 x 11 mm may represent urethral diverticula. Procedure Note Kristine Leggett MD - 11/11/2024 INDICATION: left hip pain ? tear x 2 years s/p fall. pt has tried physicaltherapy but had to stop after 6 visits 2nd to increased pain COMPARISON: Radiographs dated 01/2023 TECHNIQUE: Multiplanar, multisequence MRI was performed of the left hipwithout intravenous contrast administration. FINDINGS: Bone: No acute fracture or dislocation of the left hip. Thecontralateral right hip is unremarkable. The visualized pelvis isunremarkable. Bone marrow signal is slightly heterogeneous withoutsuspicious focal lesion. Soft Tissues: Bilateral common hamstring origin tendons are intact.Physiologic joint fluid bilaterally. Left gluteus medius and minimustendons are intact without tear. No significant left-sided greatertrochanteric bursitis. T2 hyperintense lesions noted at the level of the symphysis pubis lesionapproximately 17 x 13 mm and 17 x 11 mm may represent urethraldiverticula. IMPRESSION: Unremarkable MRI of the left hip -------- FINAL REPORT -------- Dictated By: Kristine Leggett Dictated Date: 11/11/2024 04:10 ET Assigned Physician: Kristine Leggett Reviewed and Electronically Signed By: Kristine Leggett Signed Date: 11/11/2024 04:20 ET Workstation ID: [id number] Transcribed By: Self Edit Transcribed Date: 11/11/2024 04:10 ET us Lucien Rai MD IM MRI PROCEDURES Final Result * (ABNORMAL) CBC auto differential (09/30/2024 8:11 AM EDT) WBC 6.7 4.8 - 10.8 K/mcL LAB HEMETOLOGY METHOD 09/30/2024 11:12 AM EDT [facility] RBC 5.60(H) 4.50 - 5.50 M/mcL LAB HEM[facility]OLOGY METHOD [facility] Hemoglobin 15.9 13.5 - 17.5 g/dL LAB HEMETOLOGY METHOD 09/30/2024 11:12 AM [facility] Hematocrit 48.0 42.0 - 54.0 % LAB HEMETOLOGY METHOD 09/30/2024 11[facility] MCV 85.6 79.0 - 98.0 FL LAB HEMETOLOGY METHOD 09/30/2024 11[facility] MCH 28.3 27.0 - 32.0 pcg LAB HEMETOLOGY METHOD 09/30/2024 11:12 AM [facility] MCHC 33.1 32.0 - 37.0 g/dL LAB HEMETOLOGY METHOD 09/30/2024 11:12 AM [facility] RDW 12.9 11.0 - 15.0 % LAB HEMETOLOGY METHOD 09/30/2024 11:12 AM [facility] Platelets 245 130 - 400 K/mcL LAB HEMETOLOGY METHOD 09/30/2024 11:12 AM [facility] MPV 11.8(H) 7.0 - 11.0 FL LAB HEMETOLOGY METHOD 09/30/2024 11:12 AM [facility] NRBC 0.0 <1.0 % LAB HEMETOLOGY METHOD 09/30/2024 11:12 AM [facility] NRBC Absolute 0.00 <0.10 K/mcL LAB HEMETOLOGY METHOD 09/30/2024 11:12 AM [facility] Neutrophils Relative 54.1 % LAB HEMETOLOGY METHOD 09/30/2024 11:12 AM [facility] Lymphocytes Relative 31.6 % LAB HEMETOLOGY METHOD 09/30/2024 11:12 AM [facility] Monocytes Relative 10.1 % LAB HEMETOLOGY METHOD 09/30/2024 11:12 AM [facility] Eosinophils Relative 3.6 % LAB HEMETOLOGY METHOD 09/30/2024 11:12 AM [facility] Basophils Relative 0.3 % LAB HEMETOLOGY METHOD 09/30/2024 11:12 AM [facility] Immature Granulocytes Relative 0.3 % LAB HEMETOLOGY METHOD 09/30/2024 11:12 AM [facility] Neutrophils Absolute 3.63 1.50 - 7.00 K/mcL LAB HEMETOLOGY METHOD 09/30/2024 11:12 AM [facility] Lymphocytes Absolute 2.12 1.00 - 5.00 K/mcL LAB HEMETOLOGY METHOD 09/30/2024 11:12 AM [facility] Monocytes Absolute 0.68 0.20 - 1.00 K/mcL LAB HEMETOLOGY METHOD 09/30/2024 11:12 AM EDT [facility] Eosinophils Absolute 0.24 0.00 - 0.50 K/[facility] LAB HEMETOLOGY METHOD 09/30/2024 11:12 AM EDT [facility] Basophils Absolute 0.02 0.00 - 0.20 K/mcL LAB HEMETOLOGY METHOD 09/30/2024 11:12 AM EDT [facility] Immature Granulocytes Absolute 0.02 0.00 - 0.03 K/[facility] LAB HEMETOLOGY METHOD 09/30/2024 11:12 AM T [facility] Blood Venous blood specimen / Unknown Venipuncture / Unknown 09/30/2024 8:11 AM EDT 09/30/2024 8:40 AM EDT us Lucien Rai MD LAB BLOOD ORDERABLES Final Resu lt [facility] [address] [place] [address], * (ABNORMAL) Basic metabolic panel (09/30/2024 8:11 AM EDT) Sodium 137 133 - 145 mmol/L LAB CHEMISTRY METHOD 09/30/2024 12:18 PM [facility] Potassium 4.7 3.5 - 5.5 mmol/L LAB CHEMISTRY METHOD 09/30/2024 12:18 PM [facility] Chloride 104 96 - 110 mmol/L LAB CHEMISTRY METHOD 09/30/2024 12:18 PM [facility] CO2 29 21 - 32 mmol/L LAB CHEMISTRY METHOD 09/30/2024 12:18 PM [facility] Anion Gap 4 3 - 11 LAB CHEMISTRY METHOD 09/30/2024 12:18 PM [facility] Glucose 103(H) 70 - 100 mg/dL LAB CHEMISTRY METHOD 09/30/2024 12:18 PM EDT [facility] BUN 15 5 - 25 mg/dL LAB CHEMISTRY METHOD 09/30/2024 12:18 PM EDT [facility] Creatinine 1.03 0.70 - 1.30 mg/dL LAB CHEMISTRY METHOD 09/30/2024 12:18 PM EDT [facility] eGFR 101 >=60 mL/min/1. 73m2 LAB CHEMISTRY METHOD 09/30/2024 12:18 PM EDT [facility] Comment:Calculation based on the Chronic Kidney Disease Epidemiology Collaboration (CKD-EPI) equation refit without adjustment for race. BUN/Creatinine Ratio 14.6 LAB CHEMISTRY METHOD 09/30/2024 12:18 PM EDT [facility] Calcium 9.4 8.5 - 10.5 mg/dL LAB CHEMISTRY METHOD 09/30/2024 12:18 PM EDT [facility] Blood Venous blood specimen / Unknown Venipuncture / Unknown 09/30/2024 8:11 AM EDT 09/30/2024 9:11 AM EDT Lucien Rai MD LAB BLOOD ORDERABLES Final Resu lt [facility] [address] [place] [address], * Depression Screening (02/08/2024) Pathologist [facility] Depression Screening abstracted Historical Provider HEALTH MAINTENANCE Final Result * (ABNORMAL) Lipid panel (06/12/2022) LDL/HDL Ratio 4 0 - 4 Triglycerides 116 0 - 150 mg/dL Cholesterol 189 0 - 200 mg/dL HDL 46 >=40 mg/dL LDL Cholesterol 120(A) 0 - 100 mg/dL Blood Venous blood specimen / Unknown Historical Provider LAB BLOOD ORDERABLES Melany l Result from Last 3 Months or Most Recently Relevant to Health Maintenance Insurance [facility] [employer] Care Teams Corporate Quality Manager Relationship Specialty Start Date End Date Lucien Rai MD [address] [place] [address] [phone] PCP - General Internal Medicine 03/23/15
== END 2024-12-19 10:00 | disposition home or self-care (01) ==
LOC: HO.HUSH 09:32
PROVIDERS: PCP Internal Medicine; Visit Provider Urology
DX: Z13.9 Encounter for screening, unspecified (principal)

== ENCOUNTER → 2024-12-19 09:31 | Outpatient (BNVA) | payer OTHER, SELFPAY | PROVIDERS: PCP Internal Medicine; Visit Provider Urology | DX: N36.1 Urethral diverticulum (principal) | CPT/HCPCS: 81003; 99202 ==

== ENCOUNTER 2025-06-08 08:58 | Outpatient (AMB) | payer OTHER, SELFPAY ==
--- NOTE | 2025-06-08 09:02 | MHC.OFFVIS ---
Vital Signs 06/08/25 09:03 Height 5 ft 6 in Weight 157 lb 13.616 oz BMI 25.5 BP 108/62 Blood Pressure Location Lt brachial Position Sitting Pulse 80 Pulse Source Monitor Intake Visit Reasons: F/U Tachycardia Manager Insurance Required: No Die Cutting Machine Operator: Die Cutting Machine Operator Present Allergies cephalexin (CEPHALEXIN) Allergy (Severe, Verified 06/08/25 09:06) Angioedema penicillin G Allergy (Severe, Verified 06/08/25 09:06) Angioedema Penicillins (PENICILLINS) Allergy (Severe, Verified 06/08/25 09:06) Angioedema Iodinated Contrast Media Allergy (Mild, Verified 06/08/25 09:06) Rash Medication List - Last Reconciled 06/08/25 by SIOBHAN Segovia albuterol sulfate 90 mcg/actuation 2 inhalations inhalation Q4H PRN albuterol sulfate 90 mcg/actuation 2 puffs inhalation QID PRN albuterol sulfate 2.5 mg inhalation Q4H PRN fluticasone propionate 50 mcg/actuation 1 spray intranasal DAILY ibuprofen 800 mg PO TID loratadine 10 mg PO DAILY lorazepam (Ativan) 1 mg PO BEDTIME PRN omeprazole 20 mg PO BID simethicone (Gas Relief (simethicone)) 125 mg PO TID PRN HPI HPI F/U Tachycardia: Details: The patient is a 30 year old male presenting for a cardiology follow-up of heart palpitations. He reports his symptoms are unchanged since his last visit two years ago and include daily fatigue, dizziness, and sharp chest pains. He continues to experience tachycardia and palpitations, which can occur randomly even while sitting. He reports episodes of waking up from sleep, screaming with a very high pulse, which has been an issue since infancy. During the daytime, he feels sensations of his heart being agitated or skipping a beat. He also notes new-onset fatigue when climbing stairs. An echocardiogram on 06/21/2023 showed a normal ejection fraction with no wall motion abnormalities, and a Holter monitor at that time showed normal rhythm. An attempt to wear a Holter monitor two years ago was unsuccessful as he had a skin reaction to the adhesive, consistent with his known latex allergy, and he says he removed it after less than 30 minutes of use. His medical history is significant for a hiatal hernia and severe acid reflux, for which he takes omeprazole. Despite treatment, he experiences an intermittent cough and regurgitation of food after eating. He is physically active, walking at least two hours every day. He has never had a sleep study. Family member present and assisting with Macedonian translation at their request. [facility] Medical History Panic disorder Migraine Vertigo Pulmonary nodules Asthma Surgical History History of esophagogastroduodenoscopy (EGD) Family History Paternal Grandfather Colon cancer Father Heart valve disease Social History Alcohol intake: never Patient Tobacco Use Status: Never used Tobacco Review of Systems Const All systems reviewed & are unremarkable except as noted in HPI and below Reports fatigue ENT Reports dizziness Card Reports chest pain (quick stabbing), Denies chest pain at rest, Denies chest pain with activity, Reports rapid heart rate, Denies pedal edema, Denies edema, Denies leg edema, Denies lightheadedness, Denies palpitations, Denies dyspnea, Denies dyspnea on exertion and Denies orthopnea Resp Denies cough, Denies dyspnea and Denies dyspnea on exertion GI Denies hematochezia and Denies change in stool character Musc Denies abnormal gait, Denies limited range of motion, Denies muscle cramps, Denies muscle weakness, Denies numbness, Denies radiating pain into limb, Denies stiffness and Denies tingling Neuro Denies abnormal gait, Reports dizziness, Denies numbness and Denies tingling Endo Reports fatigue and Denies palpitations Physical Exam Vital Signs: Last Vital Signs Pulse 80 06/08/25 09:03 BP 108/62 06/08/25 09:03 BMI result Body Mass Index 25.5 Const General: cooperative, healthy appearing, comfortable and no acute distress Orientation/consciousness: patient oriented x3 Neck Neck: Yes normal visual inspection Resp Effort & Inspection: normal respiratory effort Auscultation: clear to auscultation bilaterally, no rales, no rhonchi and no wheezes Cardio Rate: regular rate Rhythm: regular rhythm Heart sounds: S1 normal heart sound present, S2 normal heart sound present, no gallops, no murmurs and no rubs Neuro General: patient oriented x3 Extrem General: Yes normal to inspection, No no pedal edema and No calf tenderness Psych Appearance: grossly normal Mental Status: mental status grossly normal Speech and movement: Normal speech and movement present Office Procedures EKG Details: Today, read by me, sinus rhythm with sinus arrythmia, rate 80, Qtc 394ms [id number], Complete Assessment & Plan Assessment & Plan (1) Heart palpitations: Code(s): R00.2 - Palpitations Category: Medical Plan: Reports of heart palpitations like his heart is beating fast. Prior Holter, limited study showed sinus rhythm. His echocardiogram 2 years ago had shown that his heart is structurally normal which is reassuring. He does have issues with anxiety which can contribute to heart palpitations. He is likely feeling sinus tachycardia and may have extrasystoles. EKG done today showing normal sinus rhythm with sinus arrhythmia, rate 80, normal IN and QTC intervals. Will check a Holter monitor to assess for average heart rates and arrhythmia. Reviewed good hydration, caffeine reduction, physical activity as tolerated. Cardiology follow-up 4-6 weeks, sooner if needed (2) Hypersomnia: Code(s): G47.10 - Hypersomnia, unspecified Category: Medical Plan: Reports of daytime fatigue, waking in the night with screaming and heart palpitations. Will check home sleep study to evaluate for obstructive sleep apnea. (3) Atypical chest pain: Code(s): R07.89 - Other chest pain Category: Medical Plan: Quick stabbing pains in his left chest occurring randomly. No exertional symptoms. EKG shows no ischemic findings. No concern this is cardiac chest pain. Plan I informed the patient that his prior echocardiogram from two years ago showed a structurally normal heart, so a repeat test is not necessary. I explained that his sharp, random chest pains are not concerning for a cardiac issue because they do not occur with physical activity, and are more likely related to muscle or nerve twinges. I recommended he undergo a one-day heart monitor and a home sleep study. I acknowledged his previous allergic reaction to medical tape and will request sensitive skin adhesives for the monitor. I discussed that the sleep study will help determine if an underlying condition like sleep apnea is causing his daytime fatigue and episodes of waking up with a startled, racing heart. We will arrange a follow-up visit to review the results of these tests once they are complete. Orders: Orders ECG holter monitor 24 hour Today R00.2 - Palpitations RT home sleep study Today G47.10 - Hypersomnia, unspecified Patient Instructions: - We will order a heart monitor to wear for one day. Due to your past skin reaction, we will request special sensitive skin adhesives. - We will also order a home sleep study to check your breathing patterns, oxygen levels, and heart rate while you sleep. - Your random, sharp chest pains are not likely related to your heart since they do not happen when you are active. - Continue to take your medications as prescribed. - Please schedule a follow-up appointment after both tests are finished so we can review the results together. Patient was informed and verbally consented to the use of an ambient scribe for clinic note documentation during this visit. Visit time spent on chart review, interview, assessment, orders, documentation. Coding Level of Care Code Est Pt Level 4 (68306) Add On Problem Visit Only Diagnoses Heart palpitations R00.2 Hypersomnia G47.10 Atypical chest pain R07.89 CPT Codes EKG - CPT: [id number], Complete ([id number]) Time Spent (min) 28
[2025-06-08 09:03] VITALS: BP 108/62; PULSE 80; BMI 25.5
== END 2025-06-08 09:34 | disposition home or self-care (01) ==
PROVIDERS: PCP Internal Medicine; Visit Provider Nurse Practitioner Family
DX: R00.2 Palpitations (principal); G47.10 Hypersomnia, unspecified; R07.89 Other chest pain
CPT/HCPCS: 93010; 99214

== ENCOUNTER → 2025-06-08 08:58 | Outpatient (BNVA) | payer OTHER, SELFPAY | PROVIDERS: PCP Internal Medicine; Visit Provider Nurse Practitioner Family | DX: R07.89 Other chest pain (principal); R00.2 Palpitations; G47.10 Hypersomnia, unspecified | CPT/HCPCS: 93005; 99212 ==

== ENCOUNTER → 2025-06-15 11:22 | Outpatient (REF) | payer OTHER, SELFPAY ==
--- OUTSIDE RECORDS SUMMARY | 2025-06-15 14:31 | XMS_ITS | Clinical Summary ---
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 4 Active diclofenac (VOLTAREN) 1 % topical gel Apply 4 g topically 4 times daily. 4 Active fluticasone propionate (FLONASE) 50 mcg/actuation nasal spray 1 [place] by Nasal route daily. 3 Active loratadine (CLARITIN) 10 mg tablet Take 1 tablet (10 mg total) by mouth 1 (one) time each day. 1 Active SUMAtriptan (IMITREX) 25 mg tablet May repeat dose once after 2 hours, if needed. 0 Active loratadine (CLARITIN) 10 mg tablet Take 1 tablet (10 mg total) by mouth 1 (one) time each day. 30 each 5 4 Active predniSONE (DELTASONE) 10 mg tablet 3 tabs po x 3 days then 2 tabs po x 3 days then 1 tab po x 3 days 10 each 5 Active Additional Information Patient not taking.Reported on 02/27/2025 meclizine (ANTIVERT) 12.5 mg tablet Take 1 tablet (12.5 mg total) by mouth 3 (three) times a day if needed for dizziness. 30 tablet 11 5 09/24/19 26 Active omeprazole (PriLOSEC) [address] capsule TAKE 1 CAPSULE BY MOUTH 1 TIME EACH DAY. 90 capsule 1 5 Active fluticasone propionate (FLONASE) 50 mcg/actuation nasal spray Administer 2 sprays into each nostril 1 (one) time each day. Shake gently. Before first use, prime pump. After use, clean tip and replace cap. 16 g 5 02/28/20 26 Active ibuprofen (ADVIL,MOTRIN) 800 mg tablet Take 1 tablet (800 mg total) by mouth every 8 (eight) hours if needed for mild pain. 270 tablet 1 5 Active albuterol 2.5 mg /3 mL (0.083 %) nebulizer solution Take 3 mL (2.5 mg total) by nebulization every 4 (four) hours if needed for wheezing. 75 mL 1 5 Active albuterol HFA (PROAIR HFA ; PROVENTIL HFA ; VENTOLIN HFA) 90 mcg/actuation inhalerIndicati ons:Uncomplicat ed asthma, unspecified asthma severity, unspecified whether persistent Inhale 2 puffs by mouth every 4 (four) hours if needed for wheezing. 8.5 g 5 5 Active fluticasone-adama meterol (Wixela Inhub) 250-50 mcg/dose diskus inhaler Inhale 1 puff by mouth 2 (two) times a day. Rinse mouth with water after use to reduce aftertaste and incidence of candidiasis. Do not swallow. 3 each 1 5 02/28/20 26 Active Active Problems Problem Noted Date [...] Encounters Date Type Department Care Team Description 03/16/2025 9:56 AM EDT - 03/16/2025 11:59 PM EDT Hospital Encounter Radiology Department - [address] [id number] Thyroid cyst Discharge Disposition: Home or Self Care from Last 3 Months Immunizations Immunization Administration Dates Next Due PPD Test 09/01/2013,04/15/2013 Pneumococcal conjugate 20 va lent (Prevnar 20, PCV 20) 2mo and older 02/27/2025 Surgical History Surgery Date Site/Laterality Comments HERNIA [...] Thyroid disease Mother hypothyroidi sm? Other: no [place] Other Prostate cancer Paternal Grandfather Alzheimer's disease [...] care for your loved ones. For example, children's service supervisor or elderly care for an older adult? [...] Date Recorded What is your living situation? Unrecognized valu e 09/23/2024 Sex and Gender Information Value Date Recorded Sex Assigned at Male 07/03/2024 9:03 AM EST Legal Sex Male 4:56 PM EST Gender Identity Male 07/03/2024 9:03 AM EST Sexual Orientation Straight 07/03/2024 9: 03 AM EST Last Filed Vital Signs Vital Sign Reading Time Taken Comments Blood Pressure 110/76 02/27/2025 1:53 PM EDT Pulse 88 02/27/2025 1:53 PM EDT Temperature 36.3 C (97.4 F) 02/27/2025 1:53 PM EDT Respiratory Rate 14 02/27/2025 1:53 PM EDT Oxygen Saturation 98% 02/27/2025 1:53 PM EDT Inhaled Oxygen Concentration - - Weight 70.8 kg (156 lb) 02/27/2025 1:53 PM EDT Height 167.6 cm (5' 6 ) 02/27/2025 1:53 PM EDT Body Mass Index 25.18 02/27/2025 1:53 PM EDT Plan of Treatment Upcoming Encounters Date Type Department Care Team (Late st Contact Info) Description 09/15/2025 3:30 PM EDT Office Visit Adult Medicine [address] [phone] Lucien Rai MD [address] [place] [address] 03/02/2026 2:00 PM EDT Office Visit Adult Medicine [address] [phone] Lucien Rai MD [address] [place] [address] Health Maintenance Due Date Last Done Comments DTaP,Tdap,and Td Vaccines (1 - Tdap) 2014 Hepatitis B Vaccines (1 of 3 - 19+ 3-dose series) 2014 HPV Vaccines (1 - 3-dose SCD M series) 2022 HIV Screening 06/03/2022 Hepatitis C Screening 06/03/2022 COVID-19 Vaccine (1 - 2024-2 6 season) 2025 Influenza Vaccine (#1) 2025 Social Influencers of Health Screening 09/23/2025 09/23/2024 Cholesterol Screening (Lipid Panel) 02/27/2030 02/27/2025, 06/12/2022 RSV Immunization Adult Patients (1 - 1-dose 75+ series) 2070 Depression Screening Completed 09/23/2024, 02/08/2024 Pneumococcal Vaccine: Pediatrics (0 to 5 Years) and At-Risk Patients (6 to 49 Years) Completed 02/27/2025 HIB Vaccines Aged Out No longer eligi [...] Procedure Name Priority Date/Time Associated Diagnosis Comments US HEAD NECK SOFT TISSUE Routine 03/16/2025 10:36 AM EDT Thyroid cyst LIPID PANEL WITH REFLEX TO DIRECT LDL Routine 02/27/2025 2:59 PM EDT High cholesterol HM DEPRESSION SCREENING Routine 02/08/2024 from Last 3 Months or Most Recently Relevant to Health Maintenance Results * US Head Neck Soft Tissue (03/16/2025 10:36 AM EDT) Anatomical Region Laterality Modality Head and Neck Ultrasound 03/16/2025 1:39 PM EDT Impressions 03/16/2025 1:44 PM EDT No thyroid nodule identified. -------- FINAL REPORT -------- Dictated By: Charlotte Francis Dictated Date: 03/16/2025 13:39 ET Assigned Physician: Charlotte Francis Reviewed and Electronically Signed By: Charlotte Francis Signed Date: 03/16/2025 13:44 ET Workstation ID: [id number] Transcribed By: Self Edit Transcribed Date: 03/16/2025 13:39 ET Narrative 03/16/2025 1:44 PM EDT EXAM: Thyroid ultrasound HISTORY: Follow-up cystic nodule. COMPARISON: 07/04/2022 and 07/08/2018 FINDINGS: Thyroid gland is within normal limits for size: right lobe measures 3.9 x 1.9 x 1.4 cm, left lobe measures 4.0 x 1.8 x 1.4 cm, and the isthmus measures 0.6 cm in thickness. Thyroid parenchyma appears homogeneous without hypervascularity on color Doppler. No discrete thyroid nodule identified. Specifically, the 0.4 cm cystic nodule in the right mid lobe seen on the 07/08/2018 exam is not visualized. Procedure Note Charlotte Francis MD - 03/16/2025 EXAM: Thyroid ultrasound HISTORY: Follow-up cystic nodule. COMPARISON: 07/04/2022 and 07/08/2018 FINDINGS: Thyroid gland is within normal limits for size: right lobe measures 3.9 x1.9 x 1.4 cm, left lobe measures 4.0 x 1.8 x 1.4 cm, and the isthmusmeasures 0.6 cm in thickness. Thyroid parenchyma appears homogeneouswithout hypervascularity on color Doppler. No discrete thyroid noduleidentified. Specifically, the 0.4 cm cystic nodule in the right mid lobeseen on the 07/08/2018 exam is not visualized. IMPRESSION: No thyroid nodule identified. -------- FINAL REPORT -------- Dictated By: Charlotte Francis Dictated Date: 03/16/2025 13:39 ET Assigned Physician: Charlotte Francis Reviewed and Electronically Signed By: Charlotte Francis Signed Date: 03/16/2025 13:44 ET Workstation ID: [id number] Transcribed By: Self Edit Transcribed Date: 03/16/2025 13:39 ET us Lucien Rai MD IM US PROCEDURES Final Result * (ABNORMAL) Lipid panel with reflex to direct LDL (02/27/2025 2:59 PM EDT) Cholesterol 152 0 - 200 mg/dL LAB CHEMISTRY METHOD 02/27/2025 8:10 PM EDT [facility] Triglycerides 298(H) 0 - 150 mg/dL LAB CHEMISTRY METHOD 02/27/2025 8:10 PM EDT [facility] HDL 44 >=40 mg/dL LAB CHEMISTRY METHOD 02/27/2025 8:10 PM EDT [facility] LDL Calculated 48 0 - 100 mg/dL LAB CHEMISTRY METHOD 02/27/2025 8:10 PM EDT [facility] Comment:Estimated LDL Calcul ated using equation: Total cholesterol - HDL cholesterol - (Triglycerides/5) VLDL Cholesterol Spencer 59.6 mg/dL LAB CHEMISTRY METHOD 02/27/2025 8:10 PM EDT [facility] Non HDL Chol. (LDL+VLDL) 108 <145 mg/dL LAB CHEMISTRY METHOD 02/27/2025 8:10 PM EDT [facility] Chol/HDL Ratio 3.5 0.0 - 4.4 LAB CHEMISTRY METHOD 02/27/2025 8:10 PM EDT [facility] Blood Venous blood specimen / Unknown Venipuncture / Unknown 02/27/2025 2:59 PM EDT 02/27/2025 2:59 PM EDT Lucien Rai MD LAB BLOOD ORDERABLES Final Resu lt [facility] [address] [place] [address], * Depression Screening (02/08/2024) [facility] Signature Depression Screening abstracted Historical Provider HEALTH MAINTENANCE Final Result from Last 3 Months or Most Recently Relevant to Health Maintenance Insurance [facility] [employer] Care Teams Surface Ship Usw Supervisor Relationship Specialty Start Date End Date Lucien Rai MD [address] [place] [phone] PCP - General Internal Medicine 03/23/15
--- OUTSIDE RECORDS SUMMARY | 2025-06-15 14:31 | XMS_ITS ---
Author Name [facility] Organization Unknown Care Team Organization Name Specialty Phone Email Start Date End Da te [facility] [place] Primary Care 05/02/2022 4
== END ==
LOC: HO.CARD 11:22
PROVIDERS: PCP Internal Medicine; Visit Provider Nurse Practitioner Family
DX: R00.2 Palpitations (principal)
CPT/HCPCS: 93225

== ENCOUNTER → 2025-06-15 11:35 | Outpatient (BNV) | payer OTHER, SELFPAY | PROVIDERS: PCP Internal Medicine; Visit Provider Internal Medicine Cardiovascular Disease | DX: R00.2 Palpitations (principal) | CPT/HCPCS: 93227 ==